=== PATIENT | female | born 1955 | race Caucasian/White ===

== ENCOUNTER 2020-07-10 15:11 | Emergency (ER) | payer SELFPAY | END 2020-07-10 15:57 | disposition left against medical advice (07) | LOC: ER 15:11 | DX: R10.9 Unspecified abdominal pain (principal); Z53.21 Procedure and treatment not carried out due to patient leaving prior to being seen by health care provider ==

== ENCOUNTER → 2020-11-16 | Outpatient (CLI) | payer MEDICARE ==
[2020-07-28 15:00] VITALS: BP 126/81
[~2020-11-16] MED LIST: ALBU2.5V8 INH; ASPI-886 PO; ATOR40TA59 PO; BACL10TA PO; BRIO IH; BUDE10.22 IH; CLOP75TA PO; FLUT16SP NS; LIPITOR80 MG PO; NORT25CA PO; POLY17PO52 PO; PSYL3.4P PO; SERT50TA PO; epi pen
--- NOTE | 2020-11-16 12:50 | PDOC1 ---
INITIAL PAIN CONSULT DATE OF SERVICE: DOS: DATE: 11/16/20 TIME: 12:41 CHIEF COMPLAINT: Chief Complaint: Headaches and neck pain HISTORY OF PRESENT ILLNESS: 65-year-old female presents history of pain in the neck and headaches for proximately 2years getting worse with time with some migraine qualities as well as tension qualities and significant distributional quality of occipital neuralgia bilaterally somewhat worse on the left than the right but present bilaterally in the back of the skull occipital region traveling superiorly into the parietal region and some even into the frontal region when the pain is worse. Patient reports is worse with activity, increased light exposure, reading, rotation of motion cervical spine right repetitive motions with the neck and upper extremities. Patient reports pain is constant sharp stabbing and throbbing and shooting into the back of the head into the superior aspect of the head and the neck as well as some into the shoulders bilaterally superiorly patient reports intermittent intensity change during the day again worse with activity some tingling in the neck and the back of the head as well is burning and cramping aching pain in the neck and the back of the occipital region. Patient did have MRI of the head and cervical spine showing no acute abn ormalities brain signal within normal limits, cervical spine showing generalized disc bulge at C4-5 C5-6 and C6-7 with severe left and moderate right neuroforaminal stenosis at the bilateral C7 nerve roots. Patient has been taking hydrocodone which does decrease the pain but only takes it very sparingly has not had any for 2 weeks. Patient has had chiropractic treatment as well as physical therapy exercise she is currently doing all of which have helped only to a moderate extent. Patient rates her disability rating 0-10 10 endorses a 6 with family responsibilities recreation social activity occupation sexual behavior and self-care and 3 of life support activities. Patient reports awakens her least once a night from sleep does not affect her bowel bladder control does affect her ability to be upright and walking standing or sitting as well. PAST MEDICAL HISTORY: PMH: Arthritis, dizziness, cholecystitis, hearing loss in the left ear, stroke, occluded left vertebral artery, 70 pound weight loss since November purposely. PREVIOUS SURGERIES: Past Surgical Hx: Cholecystectomy, pacemaker placement, total abdominal hysterectomy, lumpectomy left breast, bilateral carpal tunnel release, septoplasty rhinoplasty CURRENT MEDICATIONS: Current Meds: Active Scripts Medications Dose Route/Sig Max Daily Dose Days Date Category [epi pen] PRN 11/16/20 Reported [brio inhaler] 100 Mg IH DAILY 11/16/20 Reported Lipitor (Atorvastatin Calcium) 80 Mg Tablet 1 Tab PO DAILY 11/16/20 Reported Clopidogrel (Clopidogrel Bisulfate) 75 Mg Tablet 1 Tab PO DAILY 07/26/20 Reported Aspirin Ec (Aspirin) 81 Mg Tablet.dr 1 Tab PO DAILY 07/26/20 Reported ALLERGIES; Allergies: Coded Allergies: Influenza Virus Vaccines (Verified Allergy, Intermediate, 07/26/20) codeine (Verified Allergy, Intermediate, 07/26/20) hydrocodone (Verified Allergy, Intermediate, 07/26/20) hydromorphone (Verified Allergy, Intermediate, 07/26/20) latex (Verified Allergy, Intermediate, 07/26/20) nitrofurantoin (Verified Allergy, Intermediate, 07/26/20) sulfadiazine (Verified Allergy, Intermediate, 07/26/20) FAMILY HISTORY: Family Hx: Diabetes, hypertension nervous system disease SOCIAL HISTORY: Social Hx: Patient is under alcohol does not smoke says any illegal illicit or recreational drugs is and lives locally in [facility] and is currently retired. REVIEW OF SYSTEMS: ROS: Positive for those items mentioned in history of present illness, all systems are reviewed, otherwise negative ,and are complete full and well-documented on patient's chart. PHYSICAL EXAM: VS: Blood pressure is 136/81 pulse 96 respirations 18 temperature 97.9 F height is 5 feet 5 inches weight is 189 PE: PHYSICAL EXAMINATION: GENERAL: The patient is awake, alert, oriented, appropriate, very pleasant in demeanor, patient accompanied by her daughter. HEENT: Shows normocephalic, atraumatic. Extraocular movements are intact and symmetrical. Pupils are equal round reactive light and accommodation. Scalp shows normal with appearance and palpation no specific trigger points in the scalp musculature is identified. Moderate tenderness with palpation over the inferior nuchal ridge as well as the inferior aspect of the skull base and superior cervical distribution, without radiation. Oral cavity: Mucous membranes moist and pink. NECK: Shows anterior throat supple without palpable lymphadenopathy noted. Swallow reflex symmetrical. CHEST: Shows normal on inspection. Breath sounds are clear bilaterally, distant but no rales rhonchi wheezes auscultated. HEART: Shows S1, S2 clear. No murmurs auscultated. ABDOMEN: Soft, nontender, nondistended, obese. No palpable organomegaly is noted. BACK: Shows spine grossly in the midline. Normal-appearing cervical lordotic curvature. There is slightly increased thoracic kyphosis, some minor flattening of the lumbar lordotic curvature. Lumbar paraspinous muscles show symmetrical on inspection, on palpation shows some moderate tenderness diffusely throughout the upper, middle and lower distribution of the paraspinous muscles bilaterally and also into the lower thoracic paraspinous musculature, firm and tender, but without specific trigger points, without radiation of pain. The patient has good rotational motion of the lumbar spine, both laterally as well as extension and flexion without significant difficulty. No tenderness over the spinous processes, sacrum or sacroiliac regions. EXTREMITIES: Upper extremities show deep tendon reflexes 2+ in the biceps and triceps tendons. Motor exam is 5 on a scale of 5 with right hip, biceps and triceps flexion and 5/5 on the left. Peripheral pulses are 2+ radial. No peripheral edema is noted bilaterally. Upper extremities are warm and dry to touch, equal in color and appearance. SKIN: Shows warm and dry, good turgor. No edema. No sores, rashes or bruising throughout. IMPRESSION: Impression: 65-year-old female with long history of headaches in the occipital region c onsistent with findings of occipital neuralgia bilaterally. Recent neurosurgical work-up as noted MRI scan brain and cervical spine as noted Arthritis Dizziness History of stroke and vertebral artery occlusion of the left Plan: Options were discussed with the patient patient daughter who accompanied her visit today. We discussed continued medical management continued physical therapies interventional techniques. Patient would like to pursue interventional techniques. We discussed bilateral greater occipital nerve blocks, using description as well as anatomical models to describe the procedure. Patient is interested would like to proceed. In the meantime patient continue with oral analgesics as currently as well as exercise and headache reduction therapies as currently. BRAD JOHANSEN MD Nov 16, 2020 12:50
== END | disposition home or self-care (01) ==
LOC: PNCL 08:21
PROVIDERS: ATTEND Anesthesiology
DX: M54.2 Cervicalgia (principal); R51.9 Headache, unspecified; M19.90 Unspecified osteoarthritis, unspecified site; I10 Essential (primary) hypertension; E78.00 Pure hypercholesterolemia, unspecified; I48.91 Unspecified atrial fibrillation; G47.30 Sleep apnea, unspecified; Z86.73 Personal history of transient ischemic attack (TIA), and cerebral infarction without residual deficits; Z90.49 Acquired absence of other specified parts of digestive tract; Z90.710 Acquired absence of both cervix and uterus; Z98.890 Other specified postprocedural states; Z79.899 Other long term (current) drug therapy; Z82.49 Family history of ischemic heart disease and other diseases of the circulatory system; Z83.3 Family history of diabetes mellitus; Z85.828 Personal history of other malignant neoplasm of skin
CPT/HCPCS: 99214; G0463

== ENCOUNTER → 2020-11-28 | Outpatient (CLI) | payer MEDICARE ==
[2020-07-28 15:00] VITALS: BP 126/81
--- NOTE | 2020-11-28 11:35 | RAD ---
EXAM: Bilateral digital screening mammogram with tomosynthesis. HISTORY: 65-year-old female presents for screening mammography. TECHNIQUE: Full-field digital craniocaudal and mediolateral oblique 2D and 3D tomosynthesis images of both breasts are obtained for evaluation. Computer aided detection was applied. COMPARISON: 08/29/2018 BREAST PARENCHYMAL DENSITY: Level C - Heterogeneously dense. FINDINGS: There is no new suspicious mass, microcalcification or region of architectural distortion. There is a pacemaker generator within the left chest wall with surrounding surgical clips. IMPRESSION: BI-RADS Category 2: Benign finding(s). RECOMMENDATION: Annual mammography is recommended. If your mammogram demonstrates that you have dense breast tissue, which could hide abnormalities, and if you have other risk factors for breast cancer that have been identified, you might benefit from s upplemental screening tests that may be suggested by your ordering physician. Dense breast tissue, i n and of itself, is a relatively common condition. This information is not provided to cause undue c oncern, but rather to raise your awareness and to promote discussion with your physician regarding th e presence of other risk factors, in addition to dense breast tissue. A report of your mammography re sults will be sent to you and your physician. You should contact your physician if you have any ques tions or concerns regarding this report. Mammography is a sensitive method for finding small breast cancers, but it does not detect them all a nd is not a substitute for careful clinical examination. A negative mammogram does not negate a clin ically suspicious finding and should not result in delay in biopsying a clinically suspicious abnorma lity. PQRS compliance statement - Patient information was entered into a reminder system with a target due date for the next mammogram. "Our facility is accredited by the [employer] Mammography Program." Electronically signed by: Ruthie Paredes MD (11/28/2020 11:33 AM) [id number]
== END ==
LOC: MAMMO 09:38
PROVIDERS: ATTEND Plastic Surgery
DX: Z12.31 Encounter for screening mammogram for malignant neoplasm of breast (principal)
CPT/HCPCS: 77063; 77067

== ENCOUNTER → 2020-12-19 | Outpatient (CLI) | payer MEDICARE ==
[2020-07-28 15:00] VITALS: BP 126/81
--- NOTE | 2020-12-23 11:38 | RESP ---
DATE OF SERVICE: 12/19/2020 ATTENDING PHYSICIAN: Romelia Phillips MD The patient underwent full pulmonary function testing on 12/19. The FEV1 to FVC ratio was 78%, FEV1 was normal at 98% of predicted. FVC was likewise normal. Total lung capacity was slightly elevated. Residual volume was elevated. IMPRESSION: 1. No evidence of severe obstructive lung disease. 2. Elevated residual volume compatible with air trapping. CANDELARIA DR: Kina TID: [id number] CC: DONNY ZHONG
== END ==
LOC: PF 07:44
PROVIDERS: ATTEND Internal Medicine Pulmonary Disease
DX: J45.909 Unspecified asthma, uncomplicated (principal)
CPT/HCPCS: 94010; 94726; 94729

== ENCOUNTER 2021-01-10 09:56 | Emergency (ER) | payer MEDICARE ==
[~2021-01-10] VITALS: Ht 165.1 cm; Wt 85.2 kg
--- NOTE | 2021-01-10 10:29 | PHYS DOC ---
Past Medical History Past Medical History: Asthma, CAD, CVA, Other Additional Past Medical Histor: PACEMAKER; 100% BLOCKAGE OF LEFT VERTEBRAL ARTERY Past Surgical History: Cholecystectomy, Hysterectomy Additional Past Surgical Histo: SKIN CA, BILATERAL CARP. TUNNEL, LEFT LYMPH NODES/BREAST Smoking Status: Never Smoker Alcohol Use: None General Adult EDM: Chief Complaint: MULTIPLE COMPLAINTS HPI: HPI: Patient is a 65 year old female who is here with report of left eye pain, redness, tearing and blurred vision. She reports that she recently got new contacts, and only has a contact in the left eye. She slept for 2 nights in a row with a contact in her eye did not take it out. She has taken the contact out as of now. She denies fever or chills. She denies complete vision loss. She reports pain around her orbit. No purulent eye drainage. She denies severe dizziness, nausea vomiting symptoms. She also reports that she feels a "bump" on the top of her head. She reports that she just noticed it yesterday. She denies any trauma or injury. There is no open wound, no redness, no fever. She reports that it is "not normal" for her to have this. However, she also reports that she had the same symptoms years ago, reportedly with her vertebral artery dissection for which she is currently taking Plavix. She denies vertigo or dizzy symptoms. She denies any fall or syncope. Review of Systems: Review of Systems: Constitutional: Denies fever or chills. [] Eyes: Left eye pain, redness, tearing, blurred vision. No vision loss. HENT: He does report nasal congestion. Denies sore throat. Respiratory: Denies cough or shortness of breath. [] Cardiovascular: Denies chest pain or edema. [] GI: Denies abdominal pain, nausea, vomiting Musculoskeletal: Denies back pain or joint pain. [] Integument: Denies rash. [] Neurologic: Endocrine: Denies polyuria or polydipsia. [] Lymphatic: Denies swollen glands. [] Psychiatric: Chronic mood disorder. Heart Score: C/O Chest Pain: No Risk Factors: Risk Factors: DM, Current or recent (<one month) smoker, HTN, HLP, family history of CAD, obesity. Risk Scores: Score 0 - 3: 2.5% MACE over next 6 weeks - Discharge Home Score 4 - 6: 20.3% MACE over next 6 weeks - Admit for Clinical Observation Score 7 - 10: 72.7% MACE over next 6 weeks - Early Invasive Strategies Current Medications: Current Medications Medications (Trade) Dose Ordered Sig/Bryon Start Time Stop Time Status Last Admin Dose Admin Fluorescein Sodium (Ful-Shira) 1 strip 1X ONCE 01/10/21 10:30 01/10/21 10:31 Tetracaine HCl (Tetracaine) 1 drop 1X ONCE 01/10/21 10:30 01/10/21 10:31 Allergies: Allergies: Allergies Coded Allergies Type Severity Reaction Last Updated Verified Influenza Virus Vaccines Allergy Intermediate 07/26/20 Yes codeine Allergy Intermediate 07/26/20 Yes hydrocodone Allergy Intermediate 07/26/20 Yes hydromorphone Allergy Intermediate 07/26/20 Yes latex Allergy Intermediate 07/26/20 Yes nitrofurantoin Allergy Intermediate 07/26/20 Yes sulfadiazine Allergy Intermediate 07/26/20 Yes Physical Exam: PE: Constitutional: Well developed, well nourished, no acute distress, non-toxic aydee earance. [] HENT: Normocephalic, atraumatic, oropharynx is patent and clear. TMs are clear bilaterally. There is no evidence of any scalp abnormality on exam. No palpable step-offs, crepitus. No erythema. No rash. I am unable to elicit any tenderness with palpation of her entire scalp. No deformity. Eyes: PERRL, EOMI, sclera are anicteric. Right eye conjunctive is clear, no chemosis or injection. There is clear tearing of the left eye, there is mild to moderate chemosis, mild to moderate scleral injection and conjunctival erythema. No purulent drainage. No periorbital edema, induration or erythema. No visible foreign body. No corneal ulceration. On Wood lamp exam, after instillation of topical tetracaine and fluorescein, there is one superficial corneal abrasion noted around 1:00. Negative Talya, no evidence of corneal laceration. No large abrasion noted. Photophobia and pain resolved almost immediately after instillation of topical anesthetic. No pain with EOM. Neck: Normal range of motion, no tenderness, supple, trachea is midline. Cardiovascular: She is well-perfused appearing. No edema. Lungs & Thorax: Respirations are nonlabored. Skin: Warm, dry, no erythema, no rash. [] Back: No tenderness, no CVA tenderness. [] Extremities: No tenderness, no cyanosis, no clubbing, ROM intact, no edema. [] Neurologic: Alert and oriented X 3, normal motor function, cranial nerves II through XII grossly intact. She ambulates steadily. Sensation is grossly intact. Speech is clear and fluent. Psychologic: Somewhat bizarre and flat affect. [] EKG: EKG: [] Radiology/Procedures: Radiology/Procedures: [] Course & Med Decision Making: Course & Med Decision Making I discussed the findings, differential diagnosis and plan of care with her. She admits that her tetanus is up-to-date within the last 5 years. She feels much better after local anesthetic is applied. She reports that she has been taking hydrocodone at home for pain, which she had leftover from surgery from last spring. She is almost out of this, though she does report it does help her pain. I agreed to give her a small amount for discharge, but if she should require any more of this, she should reach out to her PCP for this. First dose of topical tobramycin ophthalmic antibiotic is given here. I instructed her on the use of this medication for home. She is to throw away any old contacts. She is not to replace any contacts until symptoms are completely resolved. I cautioned her against sleeping in contacts again, so as to try to avoid issues like this. Regarding her concerns about her scalp, she has no evidence of any obvious deformity or physical exam abnormality. There is no current indication for any emergent imaging or invasive exams at this time, based on current presentation. I did tell her she should follow-up with her primary care physician for further discussion of this matter. She seems to be uninterested in her scalp issue after instillation of tetracaine, and subsequent resolution of her eye discomfort. Return precautions are given. She verbalizes understanding of information given. Vaibhav Disclaimer: Vaibhav Disclaimer: This electronic medical record was generated, in whole or in part, using a voice recognition dictation system. Departure Departure Impression: Primary Impression: Left corneal abrasion Additional Impression: Conjunctivitis, left eye Disposition: HOME / SELF CARE / HOMELESS Condition: STABLE Referrals: DONNY ZHONG (PCP) Patient Instructions: Conjunctivitis (Viral and Bacterial), Eye - Corneal Abrasion Additional Instructions: Use the eyedrops as such: 1 drop in your left eye every 4 hours, while awake, for 5 days. Throw away your old contacts. Do not use any more contacts until your symptoms are resolved, at least 1 week. Return to the ER immediately for fever of 100.4 or higher, severe eyelid swelling, thick yellow or green eye drainage, uncontrolled vomiting, severe headache or any other concerns. You may take the pain medication as needed/as directed. You may use cool compresses as needed. Avoid rubbing your eye. To help soothe your eye, between antibiotic doses, you may use [id number] refresh drops. Keeping these refrigerated may help soothe your eye as well. Contact your primary care physician for follow-up. Scripts Hydrocodone Bit/Acetaminophen (HYDROCODONE-APAP 5-325 ) 1 Tab Tablet 1 TAB PO PRN Q6HRS PRN for PAIN, #8 TAB 0 Refills Prov: JANETTE LEVINE DO 01/10/21 JANETTE LEVINE DO Jan 10, 2021 10:29
[2021-01-10] MEDS ORDERED: TETRACAINE 0.5% OPHTH SOLUTION 4ML BOTTLE. OS ONE (10:30)
[2021-01-10] MEDS ORDERED: FLUORESCEIN OPHTH TEST STRIP. OS ONE (10:30)
[2021-01-10] MEDS ORDERED: TOBRAMYCIN 0.3% OPHTH SOLUTION 5ML BOTTLE. OS ONE (10:45)
[2021-01-10] MEDS ORDERED: HYDR-2761 PO (10:46)
[2021-01-10 11:00] VITALS: BP 122/63
== END 2021-01-10 11:10 | disposition home or self-care (01) ==
LOC: ER 09:56
DX: S05.02XA Injury of conjunctiva and corneal abrasion without foreign body, left eye, initial encounter (principal); H10.9 Unspecified conjunctivitis; Z86.73 Personal history of transient ischemic attack (TIA), and cerebral infarction without residual deficits; J45.909 Unspecified asthma, uncomplicated; I25.10 Atherosclerotic heart disease of native coronary artery without angina pectoris; Z95.0 Presence of cardiac pacemaker; Z88.5 Allergy status to narcotic agent; Z88.2 Allergy status to sulfonamides; Z88.7 Allergy status to serum and vaccine; Z91.040 Latex allergy status; X58.XXXA Exposure to other specified factors, initial encounter; Y93.89 Activity, other specified; Y92.89 Other specified places as the place of occurrence of the external cause; Y99.8 Other external cause status
CPT/HCPCS: 99283

== ENCOUNTER → 2021-03-30 | Outpatient (CLI) | payer MEDICARE ==
[~2021-03-30] MED LIST changes: +ASPI1TAB31 PO; +CETI1TAB7 PO; +HYDR-2761 PO; +MULT-445 PO
--- NOTE | 2021-03-30 14:20 | EKG ---
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
[2021-03-30 14:29] LABS: BASO % 1 % (0-3); EOS % 1 % (0-3); HEMATOCRIT 42.4 % (36.0-47.0); HEMOGLOBIN 14.5 g/dL (12.0-15.5); LYMPH # 1.6 x10^3/uL (1.0-4.8); LYMPH % 35 % (24-48); MEAN CORPUSCULAR HEMOGLOBIN 31 pg (25-35); MEAN CORPUSCULAR HGB CONC 34 g/dL (31-37); MEAN CORPUSCULAR VOLUME 91 fL (79-100); MONO # 0.4 x10^3/uL (0.0-1.1); MONO % 8 % (0-9); NEUT # 2.5 x10^3/uL (1.8-7.7); NEUT % 55 % (31-73); PLATELET COUNT 206 x10^3/uL (140-400); RED BLOOD COUNT 4.65 x10^6/uL (3.50-5.40); RED CELL DISTRIBUTION WIDTH 12.6 % (11.5-14.5); WHITE BLOOD COUNT 4.5 x10^3/uL (4.0-11.0)
[2021-03-30 14:44] LABS: CALCIUM 8.6 mg/dL (8.5-10.1); CREATININE 0.7 mg/dL (0.6-1.0); GFR 84.2; POTASSIUM 3.6 mmol/L (3.5-5.1)
== END ==
LOC: SURGPAT 13:45
PROVIDERS: ATTEND Plastic Surgery
DX: Z01.818 Encounter for other preprocedural examination (principal); U07.1 COVID-19; Z79.01 Long term (current) use of anticoagulants
CPT/HCPCS: 36415; 80048; 85025; 85610; 85730; 93005; U0003; U0005

== ENCOUNTER 2021-05-15 06:34 | Day surgery (SDC) | payer MEDICARE ==
[2021-03-30 14:27] VITALS: BP 129/73
[2021-05-12 13:18] VITALS: BP 129/73
[~2021-05-15] VITALS: Ht 165.1 cm; Wt 82.5 kg
[~2021-05-15 06:34] MED LIST changes: +HYDROmorphone 2 MG/ML INJ. IVP PRN; +IV RINGERS,LACTATED 1000ML 1,000 ML IV SCH; +MORPHINE SULFATE 2 MG/ML INJ. IVP PRN; +PROCHLORPERAZINE 10 MG/2 ML VIAL. IVP PRN; +fentaNYL PF VIAL 100 MCG/2 ML VIAL IVP PRN
[2021-05-15] MEDS ORDERED: NEOSTIGMINE METHYLSULFATE 5 MG/5 ML SYRINGE. ONE (06:59)
[2021-05-15] MEDS ORDERED: fentaNYL PF VIAL 100 MCG/2 ML VIAL ONE (06:59)
[2021-05-15] MEDS ORDERED: ROCURONIUM 50 MG/5 ML VIAL. ONE (06:59)
[2021-05-15] MEDS ORDERED: DEXAMETHASONE SOD PHOS 4 MG/ML VIAL ONE (06:59)
[2021-05-15] MEDS ORDERED: LIDOCAINE 2% PF 5 ML VIAL. ONE (06:59)
[2021-05-15] MEDS ORDERED: ONDANSETRON PF 4 MG/2 ML VIAL. ONE (06:59)
[2021-05-15] MEDS ORDERED: PROPOFOL 10 MG/ML (20ML) VIAL. IV ONE (06:59)
[2021-05-15] MEDS ORDERED: PHENYLEPHRINE 10 MG/ML VIAL. ONE (07:00)
[2021-05-15] MEDS ORDERED: GLYCOPYRROLATE 1 MG/5 ML VIAL. ONE (07:00)
[2021-05-15] MEDS ORDERED: SEVOFLURANE > 120 MINUTES. IH ONE (07:00)
[2021-05-15] MEDS ORDERED: FLUT1AER2 INH (07:07)
[2021-05-15 07:17] VITALS: BP 131/77
[2021-05-15] MEDS ORDERED: BUPIVACAINE-EPI 0.5% 30 ML VIAL KIT. ONE (07:22)
[2021-05-15] MEDS ORDERED: LIDOCAINE 1%/EPI 1:100,000 20 ML VIAL. ONE (07:23)
--- NOTE | 2021-05-15 08:17 | NUR ---
PT HERE IN [facility] FOR [facility]GERY. DR. STILL HERE TO SEE PT. PT STATED SHE FELL YESTERDAY. PT HAD SOME DIZZYNESS AND NEUROLOGICAL CHANGES. DR. STILL CX SUREGERY AND INSTRUCTED TO PT TO GO TO ER TO BE EVAULATED. PT VERBALIZED UNDERSTANDING AND IS BEING DC'D FROM [facility]. ALL HER BELONGINGS WERE RETURNED. DAUGTHER IS AT HER BESIDE AND IS GOING TO ER WITH HER. PT WHEELED TO ER.
--- NOTE | 2021-05-15 08:50 | PDOC ---
Provider Note Date of Service: DATE: 05/15/21 TIME: 08:39 Provider Note S: I arrived in the preoperative holding area to sharon the patient. The nursing team informed me that the patient reported a fall this past Saturday with residual symptoms. She stopped her Plavix 3 days ago, 2 days before the fall. On questioning the patient reports that she was in her home on Saturday when she lost her footing, sliding on her left foot and having her right leg folded under her. She did hit the back of her head on the stairs. She reports having a headache but not her usual migraine with aura that has since resolved. However she reports some dizziness that is different from her usual dizziness associated with her stroke. She also reports some epigastric pain new in nature after the fall and describes it as feeling like a "ulcer." O: Afebrile. Vital signs stable. General: No acute distress HEENT: Pupils equal and reactive. Chest: Bilateral breasts without signs of bruising, hematoma, or infection Abdomen: Soft, nondistended, no signs of bruising or subcutaneous hematoma. Patient does have tenderness to palpation at the epigastrium and less so in the left upper quadrant. Neuro: A&O x3. Some postural dizziness. Gait intact, steady. A/P: 66-year-old female with macromastia status post recent fall with new onset neurologic symptoms, unevaluated. -We will cancel surgery today and consider rescheduling in the future -Patient was advised to hold Plavix until she is evaluated formally -Patient was referred to the emergency room for further evaluation Fe Still MD Justifications for Admission Other Justification FE STILL MD May 15, 2021 08:50
== END 2021-05-15 16:10 | disposition home or self-care (01) ==
LOC: SURG 06:34
PROVIDERS: ATTEND Plastic Surgery
DX: R92.8 Other abnormal and inconclusive findings on diagnostic imaging of breast (principal); Z53.8 Procedure and treatment not carried out for other reasons; I10 Essential (primary) hypertension; I48.91 Unspecified atrial fibrillation; E78.00 Pure hypercholesterolemia, unspecified; J45.909 Unspecified asthma, uncomplicated; G47.30 Sleep apnea, unspecified; Z90.710 Acquired absence of both cervix and uterus; Z85.828 Personal history of other malignant neoplasm of skin; Z79.899 Other long term (current) drug therapy; Z98.890 Other specified postprocedural states; Z79.82 Long term (current) use of aspirin; Z91.040 Latex allergy status; Z88.8 Allergy status to other drugs, medicaments and biological substances
CPT/HCPCS: J0690; J2370; J2710; J3010; J3490; J1100; J2405; J2704

== ENCOUNTER 2021-05-15 08:36 | Observation (INO) | payer MEDICARE ==
[~2021-05-15] VITALS: Ht 165.1 cm; Wt 85.6 kg
[~2021-05-15 08:36] MED LIST changes: +FLUT1AER2 INH; -HYDROmorphone 2 MG/ML INJ. IVP PRN; -IV RINGERS,LACTATED 1000ML 1,000 ML IV SCH; -MORPHINE SULFATE 2 MG/ML INJ. IVP PRN; -PROCHLORPERAZINE 10 MG/2 ML VIAL. IVP PRN; -fentaNYL PF VIAL 100 MCG/2 ML VIAL IVP PRN
[2021-05-15 09:13] LABS: CALCIUM 8.9 mg/dL (8.5-10.1); CREATININE 0.8 mg/dL (0.6-1.0); POTASSIUM 3.8 mmol/L (3.5-5.1)
[2021-05-15 09:17] LABS: BASO % 1 % (0-3); EOS % 1 % (0-3); HEMATOCRIT 41.6 % (36.0-47.0); HEMOGLOBIN 13.7 g/dL (12.0-15.5); LYMPH # 1.3 x10^3/uL (1.0-4.8); LYMPH % 39 % (24-48); MEAN CORPUSCULAR HEMOGLOBIN 30 pg (25-35); MEAN CORPUSCULAR HGB CONC 33 g/dL (31-37); MEAN CORPUSCULAR VOLUME 92 fL (79-100); MONO # 0.3 x10^3/uL (0.0-1.1); MONO % 8 % (0-9); NEUT # 1.8 x10^3/uL (1.8-7.7); NEUT % 52 % (31-73); PLATELET COUNT 184 x10^3/uL (140-400); RED BLOOD COUNT 4.54 x10^6/uL (3.50-5.40); RED CELL DISTRIBUTION WIDTH 12.5 % (11.5-14.5); WHITE BLOOD COUNT 3.4 x10^3/uL (4.0-11.0)
--- NOTE | 2021-05-15 09:21 | RAD ---
CT HEAD/BRAIN WO History: Reason: slurred speech / Spl. Instructions: / History: Comparison: None. Technique: Noncontrast CT imaging was performed of the head. Exposure: One or more of the following individualized dose reduction techniques were utilized for thi s examination: 1. Automated exposure control 2. Adjustment of the mA and/or kV according to patient size 3. Use of iterative reconstruction technique. Findings: No intracranial hemorrhage. No mass effect. No hydrocephalus. Mild foci of decreased attenuation within hemispheric white matter, most often due to chronic microva scular ischemia. Partially empty sella, often incidental. Imaged orbits are unremarkable. Imaged paranasal sinuses and mastoid air cells are clear. No acute ca lvarial fracture. TMJ arthropathy. Impression: 1. No acute intracranial abnormality. Electronically signed by: Adan Cardona DO (05/15/2021 9:19 AM) [id number]
[2021-05-15 09:26] LABS: ALBUMIN 3.9 g/dL (3.4-5.0); ALBUMIN/GLOBULIN RATIO 1.3 (1.0-1.7); MAGNESIUM 2.1 mg/dL (1.8-2.4); TOTAL BILIRUBIN 0.4 mg/dL (0.2-1.0)
[2021-05-15 09:36] LABS: PROTHROMBIN TIME PATIENT 12.8 SEC (11.7-14.0)
[2021-05-15 09:37] LABS: BILIRUBIN,URINE NEGATIVE (NEG); CLARITY,URINE CLEAR; COLOR,URINE YELLOW; NITRITE,URINE NEGATIVE (NEG); PH,URINE 7.5 (<5.0-8.0); PROTEIN,URINE NEGATIVE (NEG-TRACE); UROBILINOGEN,URINE 0.2 mg/dL (0.2 mg/dL)
--- NOTE | 2021-05-15 09:37 | RAD ---
AP chest. HISTORY: Slurred speech AP view was taken of the chest. Lungs are clear. There are clips in the left axilla from prior surger y. There is a left pacemaker with atrial and ventricular pacing leads. There is no effusion. IMPRESSION: 1. No acute infiltrates. Electronically signed by: Celio Alfredo MD (05/15/2021 9:35 AM) [facility]
[2021-05-15 09:40] LABS: INFLUENZA A PATIENT NEGATIVE (NEGATIVE); INFLUENZA B PATIENT NEGATIVE (NEGATIVE)
[2021-05-15 09:40] LABS: AMORPHOUS SEDIMENT,UR PRESENT /HPF; BACTERIA,URINE 0 /HPF (0-FEW); RBC,URINE 0 /HPF (0-2)
[2021-05-15 09:45] LABS: AMPHETAMINE/METHAMPHETAMINE NEG (NEG); BARBITURATES NEG (NEG); BENZODIAZEPINES NEG (NEG); CANNABINOIDS NEG (NEG); COCAINE NEG (NEG); METHADONE NEG (NEG); OPIATES NEG (NEG); PHENCYCLIDINE NEG (NEG)
[2021-05-15] MEDS ORDERED: IOHEXOL 300 MG/ML 100ML VIAL. IV ONE (10:45)
[2021-05-15] MEDS ORDERED: CONTRAST GIVEN. MC PRN (10:45)
--- NOTE | 2021-05-15 10:46 | PDOC1 ---
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 Staff noted and patient noted she woke up this way. She notes this is not unusual for her. Has been off aspirin Plavix for 5 days leading up to surgery. No intracranial hemorrhage on noncontrast CT head and left-sided pacemaker chest radiograph no acute findings. Symptoms apparently resolved. Intentionally lost 66 pounds since 11/2019. She does note on further review that she had a fall on the stairs 2 days prior to coming to the hospital did not strike her head or lose consciousness may be hit her left side. She does note some crampy left flank pain rating down her pelvis over the last couple days as well. She also complains of headache though she does get right posterior headaches frequently. She is worried she may have gotten a little confused to that no loss of consciousness no concussion. WBC 3.4, Hb 13.7 platelets 184, NA 141, K3.8, BUN 14, CR 0.8, glucose 94, calciu m 8.9, magnesium 2.1, bilirubin 0.4, AST 21, ALT 33, alkaline phosphatase 80, albumin 3.9, high-sensitivity troponin is 5, urinalysis bland, urine drug screen negative, rapid influenza and rapid COVID-19 negative She notes a recent follow-up with Dr. Castillo office and pacemaker check only requiring 9% pacing. Live with supportive daughter Oliva who was present in ED for interview and provides history. She is going to be leaving for [place], however. No significant alcohol history. On statin for HLD. Admitted for further care Past Medical History Cardiovascular: Hyperlipidemia, Other CENTRAL NERVOUS SYSTEM: CVA GI: Constipation Past Surgical History Past Surgical History: Pacemaker, Cholecystectomy, Hysterectomy Family History Family History: Other Social History Smoke: No ALCOHOL: none Drugs: None Current Medications Current Medications Active Scripts Active Hydrocodone-Apap 5-325 (Hydrocodone Bit/Acetaminophen) 1 Tab Tablet 1 Tab PO PRN Q6HRS PRN Reported Breo Ellipta 100-25 Mcg INH (Fluticasone/Vilanterol) 1 Each Blst.w.dev 1 Each INH DAILY Zyrtec-D Tablet (Cetirizine Hcl/Pseudoephedrine) 1 Each Tab.er.12h 1 Tab PO DAILY Excedrin Migraine Caplet (Aspirin/Acetaminophen/Caffeine) 1 Each Tablet 1 Each PO Q6HRS PRN Multivitamins (Multivitamin) 1 Each Tablet 1 Tab PO DAILY [epi pen] PRN Lipitor (Atorvastatin Calcium) 80 Mg Tablet 1 Tab PO DAILY Clopidogrel (Clopidogrel Bisulfate) 75 Mg Tablet 1 Tab PO DAILY Aspirin Ec (Aspirin) 81 Mg Tablet. 1 Tab PO DAILY Allergies Allergies: Coded Allergies: Influenza Virus Vaccines (Verified Allergy, Intermediate, Anaphylaxis, 05/15/21) codeine (Verified Allergy, Intermediate, Rash, 05/15/21) abdominal pain hydromorphone (Verified Allergy, Intermediate, Rash, 05/15/21) latex (Verified Allergy, Intermediate, Hives, 05/15/21) nitrofurantoin (Verified Allergy, Intermediate, Anxiety, 05/15/21) hallucination,hives sulfadiazine (Verified Allergy, Intermediate, Hives, 05/15/21) ROS General: YES: Fatigue, Malaise; No: Chills, Night Sweats, Appetite, Other PSYCHOLOGICAL ROS: YES: Disorientation; No: Anxiety, Behavioral Disorder, Concentration difficultie, Decreased libido, Depression, Hallucinations, Hostility, Irritablity, Memory difficulties, Mood Swings, Obsessive thoughts, Physical abuse, Sexual abuse, Sleep disturbances, Suicidal ideation, Other Eyes: No Blurry vision, No Decreased vision, No Double vision, No Dry eyes, No Excessive tearing, No Eye Pain, No Itchy Eyes, No Loss of vision, No Photophobia, No Scotomata, No Uses contacts, No Uses glasses, No Other HEENT: No: Heacaches, Visual Changes, Hearing change, Nasal congestion, Nasal discharge, Oral lesions, Sinus pain, Sore Throat, Epistaxis, Sneezing, Snoring, Tinnitus, Vertigo, Vocal changes, Other ALLERGY AND IMMUNOLOGY: No: Hives, Insect Bite Sensitivity, Itchy/Watery Eyes, Nasal Congestion, Post Nasal Drip, Seasonal Allergies, Other Hematological and Lymphatic: No: Bleeding Problems, Blood Clots, Blood Transfusions, Brusing, Night Sweats, Pallor, Swollen Lymph Nodes, Other ENDOCRINE: No: Breast Changes, Galactorrhea, Hair Pattern Changes, Hot Flashes, Malaise/lethargy, Mood Swings, Palpitations, Polydipsia/polyuria, Skin Changes, Temperature Intolerance, Unexpected Weight Changes, Other Breast: No New/Changing Breast Lumps, No Nipple changes, No Nipple discharge, No Other Respiratory: No: Cough, Hemoptysis, Orthopnea, Pleuritic Pain, Shortness of breath, SOB with excertion, Sputum Changes, Stridor, Tachypnea, Wheezing, Other Cardiovascular: No Chest Pain, No Palpitations, No Orthopnea, No Paroxysmal Noc. Dyspnea, No Edema, No Lt Headedness, No Other Gastrointestinal: Yes Abdominal Pain; No Nausea, No Vomiting, No Diarrhea, No Constipation, No Melena, No Hematochezia, No Other Genitourinary: No Dysuria, No Frequency, No Incontinence, No Hematuria, No Retention, No Discharge, No Urgency, No Pain, No Flank Pain, No Other, No , No , No , No , No , No , No Musculoskeletal: No Gait Disturbance, No Joint Pain, No Joint Stiffness, No Joint Swelling, No Muscle Pain, No Muscular Weakness, No Pain In:, No Swelling In:, No Other Neurological: No Behavorial Changes, No Bowel/Bladder ControlChng, No Confusion, No Dizziness, No Gait Disturbance, No Headaches, No Impaired Coord/balance, No Memory Loss, No Numbness/Tingling, No Seizures, No Speech Problems, No Tremors, No Visual Changes, No Weakness, No Other Skin: No Dry Skin, No Eczema, No Hair Changes, No Lumps, No Mole Changes, No Mottling, No Nail Changes, No Pruritus, No Rash, No Skin Lesion Changes, No Other, No Acne Physical Exam General: Alert, Oriented X3, Cooperative, No acute distress HEENT: PERRLA Lungs: Clear to auscultation, Normal air movement Heart: S1S2, RRR, no thrills, no rubs, no gallops, no murmurs Abdomen: Normal bowel sounds, Soft, No tenderness, No hepatosplenomegaly, No masses Rectal Exam: not examined Extremities: No clubbing, No cyanosis, No edema, Normal pulses, No tenderness/swelling Skin: No rashes, No breakdown, No significant lesion Neuro: Normal gait, Normal speech, Strength at 5/5 X4 ext, Normal tone, Sensation intact, Cranial nerves 3-12 NL, Reflexes 2+ Psych/Mental Status: Mental status NL, Mood NL Vitals Vitals Vital Signs Date Time Temp Pulse Resp B/P (MAP) Pulse Ox O2 Delivery O2 Flow Rate FiO2 05/15/21 08:37 98.2 101 24 186/80 (115) 100 Room Air 98.2 Labs Labs Laboratory Tests Test 05/15/21 08:43 05/15/21 08:50 05/15/21 09:15 05/15/21 09:19 Glucose (Fingerstick) 91 mg/dL (70-99) White Blood Count 3.4 x10^3/uL (4.0-11.0) Red Blood Count 4.54 x10^6/uL (3.50-5.40) Hemoglobin 13.7 g/dL (12.0-15.5) Hematocrit 41.6 % (36.0-47.0) Mean Corpuscular Volume 92 fL (79-100) Mean Corpuscular Hemoglobin 30 pg (25-35) Mean Corpuscular Hemoglobin Concent 33 g/dL (31-37) Red Cell Distribution Width 12.5 % (11.5-14.5) Platelet Count 184 x10^3/uL (140-400) Neutrophils (%) (Auto) 52 % (31-73) Lymphocytes (%) (Auto) 39 % (24-48) Monocytes (%) (Auto) 8 % (0-9) Eosinophils (%) (Auto) 1 % (0-3) Basophils (%) (Auto) 1 % (0-3) Neutrophils # (Auto) 1.8 x10^3/uL (1.8-7.7) Lymphocytes # (Auto) 1.3 x10^3/uL (1.0-4.8) Monocytes # (Auto) 0.3 x10^3/uL (0.0-1.1) Eosinophils # (Auto) 0.0 x10^3/uL (0.0-0.7) Basophils # (Auto) 0.0 x10^3/uL (0.0-0.2) Prothrombin Time 12.8 SEC (11.7-14.0) Prothromb Time International Ratio 1.0 (0.8-1.1) Activated Partial Thromboplast Time 31 SEC (24-38) Sodium Level 141 mmol/L (136-145) Potassium Level 3.8 mmol/L (3.5-5.1) Chloride Level 105 mmol/L (98-107) Carbon Dioxide Level 30 mmol/L (21-32) Anion Gap 6 (6-14) Blood Urea Nitrogen 14 mg/dL (7-20) Creatinine 0.8 mg/dL (0.6-1.0) Estimated GFR (Cockcroft-Gault) 72.0 BUN/Creatinine Ratio 18 (6-20) Glucose Level 94 mg/dL (70-99) Lactic Acid Level 0.8 mmol/L (0.4-2.0) Calcium Level 8.9 mg/dL (8.5-10.1) Magnesium Level 2.1 mg/dL (1.8-2.4) Total Bilirubin 0.4 mg/dL (0.2-1.0) Aspartate Amino Transf (AST/SGOT) 21 U/L (15-37) Alanine Aminotransferase (ALT/SGPT) 33 U/L (14-59) Alkaline Phosphatase 80 U/L (46-116) Troponin I High Sensitivity 5 ng/L (4-50) Total Protein 7.0 g/dL (6.4-8.2) Albumin 3.9 g/dL (3.4-5.0) Albumin/Globulin Ratio 1.3 (1.0-1.7) Lipase 60 U/L (73-393) Ethyl Alcohol Level < 10 mg/dL (0-10) Influenza Type A Antigen Negative (NEGATIVE) Influenza Type B Antigen Negative (NEGATIVE) SARS-CoV-2 Antigen (Rapid) Negative (NEGATIVE) Urine Collection Type Unknown Urine Color Yellow Urine Clarity Clear Urine pH 7.5 (<5.0-8.0) Urine Specific [place] 1.020 (1.000-1.030) Urine Protein Negative mg/dL (NEG-TRACE) Urine Glucose (UA) Negative mg/dL (NEG) Urine Ketones (Stick) Negative mg/dL (NEG) Urine Blood Negative (NEG) Urine Nitrite Negative (NEG) Urine Bilirubin Negative (NEG) Urine Urobilinogen Dipstick 0.2 mg/dL (0.2 mg/dL) Urine Leukocyte Esterase Trace (NEG) Urine RBC 0 /HPF (0-2) Urine WBC 1-4 /HPF (0-4) Urine Squamous Epithelial Cells Occ /LPF Urine Amorphous Sediment Present /HPF Urine Bacteria 0 /HPF (0-FEW) Urine Opiates Screen Neg (NEG) Urine Methadone Screen Neg (NEG) Urine Barbiturates Neg (NEG) Urine Phencyclidine Screen Neg (NEG) Urine Amphetamine/Methamphetamine Neg (NEG) Urine Benzodiazepines Screen Neg (NEG) Urine Cocaine Screen Neg (NEG) Urine Cannabinoids Screen Neg (NEG) Urine Ethyl Alcohol Neg (NEG) Laboratory Tests Test 05/15/21 08:43 05/15/21 08:50 05/15/21 09:15 05/15/21 09:19 Glucose (Fingerstick) 91 mg/dL (70-99) White Blood Count 3.4 x10^3/uL (4.0-11.0) Red Blood Count 4.54 x10^6/uL (3.50-5.40) Hemoglobin 13.7 g/dL (12.0-15.5) Hematocrit 41.6 % (36.0-47.0) Mean Corpuscular Volume 92 fL (79-100) Mean Corpuscular Hemoglobin 30 pg (25-35) Mean Corpuscular Hemoglobin Concent 33 g/dL (31-37) Red Cell Distribution Width 12.5 % (11.5-14.5) Platelet Count 184 x10^3/uL (140-400) Neutrophils (%) (Auto) 52 % (31-73) Lymphocytes (%) (Auto) 39 % (24-48) Monocytes (%) (Auto) 8 % (0-9) Eosinophils (%) (Auto) 1 % (0-3) Basophils (%) (Auto) 1 % (0-3) Neutrophils # (Auto) 1.8 x10^3/uL (1.8-7.7) Lymphocytes # (Auto) 1.3 x10^3/uL (1.0-4.8) Monocytes # (Auto) 0.3 x10^3/uL (0.0-1.1) Eosinophils # (Auto) 0.0 x10^3/uL (0.0-0.7) Basophils # (Auto) 0.0 x10^3/uL (0.0-0.2) Prothrombin Time 12.8 SEC (11.7-14.0) Prothromb Time International Ratio 1.0 (0.8-1.1) Activated Partial Thromboplast Time 31 SEC (24-38) Sodium Level 141 mmol/L (136-145) Potassium Level 3.8 mmol/L (3.5-5.1) Chloride Level 105 mmol/L (98-107) Carbon Dioxide Level 30 mmol/L (21-32) Anion Gap 6 (6-14) Blood Urea Nitrogen 14 mg/dL (7-20) Creatinine 0.8 mg/dL (0.6-1.0) Estimated GFR (Cockcroft-Gault) 72.0 BUN/Creatinine Ratio 18 (6-20) Glucose Level 94 mg/dL (70-99) Lactic Acid Level 0.8 mmol/L (0.4-2.0) Calcium Level 8.9 mg/dL (8.5-10.1) Magnesium Level 2.1 mg/dL (1.8-2.4) Total Bilirubin 0.4 mg/dL (0.2-1.0) Aspartate Amino Transf (AST/SGOT) 21 U/L (15-37) Alanine Aminotransferase (ALT/SGPT) 33 U/L (14-59) Alkaline Phosphatase 80 U/L (46-116) Troponin I High Sensitivity 5 ng/L (4-50) Total Protein 7.0 g/dL (6.4-8.2) Albumin 3.9 g/dL (3.4-5.0) Albumin/Globulin Ratio 1.3 (1.0-1.7) Lipase 60 U/L (73-393) Ethyl Alcohol Level < 10 mg/dL (0-10) Influenza Type A Antigen Negative (NEGATIVE) Influenza Type B Antigen Negative (NEGATIVE) SARS-CoV-2 Antigen (Rapid) Negative (NEGATIVE) Urine Collection Type Unknown Urine Color Yellow Urine Clarity Clear Urine pH 7.5 (<5.0-8.0) Urine Specific [place] 1.020 (1.000-1.030) Urine Protein Negative mg/dL (NEG-TRACE) Urine Glucose (UA) Negative mg/dL (NEG) Urine Ketones (Stick) Negative mg/dL (NEG) Urine Blood Negative (NEG) Urine Nitrite Negative (NEG) Urine Bilirubin Negative (NEG) Urine Urobilinogen Dipstick 0.2 mg/dL (0.2 mg/dL) Urine Leukocyte Esterase Trace (NEG) Urine RBC 0 /HPF (0-2) Urine WBC 1-4 /HPF (0-4) Urine Squamous Epithelial Cells Occ /LPF Urine Amorphous Sediment Present /HPF Urine Bacteria 0 /HPF (0-FEW) Urine Opiates Screen Neg (NEG) Urine Methadone Screen Neg (NEG) Urine Barbiturates Neg (NEG) Urine Phencyclidine Screen Neg (NEG) Urine Amphetamine/Methamphetamine Neg (NEG) Urine Benzodiazepines Screen Neg (NEG) Urine Cocaine Screen Neg (NEG) Urine Cannabinoids Screen Neg (NEG) Urine Ethyl Alcohol Neg (NEG) Images Images CT head non-contrast: No intracranial hemorrhage. No mass effect. No hydrocephalus. Mild foci of decreased attenuation within hemispheric white matter, most often due to chronic microvascular ischemia. Partially empty sella, often incidental. Imaged orbits are unremarkable. Imaged paranasal sinuses and mastoid air cells are clear. No acute calvarial fracture. TMJ arthropathy. Impression: 1. No acute intracranial abnormality. CT chest/abdomen/pelvis: Left chest dual-chamber cardiac pacemaker. The thyroid is unremarkable. Right lower cervical lymph node measures 9 mm short axis with partial calcification (axial 7). The aorta is normal in caliber. No aneurysm or dissection. Pulmonary arteries are unremarkable. No mediastinal hemorrhage or hematoma. No enlarged mediastinal or hilar adenopathy. The airways are clear. No pleural effusion or pneumothorax. Mild bilateral dependent lung changes. Right lower lobe 5 mm pulmonary nodule (axial 27). Left axillary surgical clips. Mild degenerative changes in the thoracic spine. No acute osseous abnormality. No free intraperitoneal air or fluid. The liver is unremarkable. The gallbladder is surgically absent. Pancreas, spleen and adrenal glands are unremarkable. No renal hydronephrosis. Inferior pole left kidney punctate 3 mm nonobstructing stone. No bladder is within normal limits. Status post hysterectomy. No pelvic masses. The stomach and small bowel are unremarkable. Atherosclerotic calcifications of the aorta. The soft tissues are unremarkable. No acute osseous abnormality. Impression: 1. No acute findings in the chest, abdomen and pelvis. 2. Right lower lobe 5 mm pulmonary nodule. Recommend follow-up according to 2017 Fleischner Society Guidelines for solid pulmonary nodules: <6 mm: In a low risk patient, no routine follow-up. In a high risk patient (history of smoking or other known risk factors), optional CT at 12 months. Certain paitents with suspicious nodule morphology, upper lobe location, or both may warrant 12-month follow-up. 3. Nonobstructing left nephrolithiasis. VTE Prophylaxis Ordered VTE Prophylaxis Devices: No VTE Pharmacological Prophylaxi: Yes Assessment/Plan Assessment/Plan A/P: Slurred speech - facial droop. Likely chronic intermittent TIA. would cont ASA, plavix. Neurology consulted. Passed mcmillan bedside, can swallow. Symptoms resolved, NIHSS 0 now H/o prior CVA w/ expressive aphasia - has since resolved. H/o left vertebral artery dissection HTN (off meds since has lost weight) HLD - lipitor Asthma - prn nebs CHONG - on CPAP S/p pacemaker - sees Dr. Castillo, recent interrogation a few weeks ago BCC removal under left breast w/ axillary LN dissection (benign x 3) - stable Bilateral shoulder pain - with pendulous breasts, pain, she wishes to delay and reschedule her reductive mammoplasty in the future Left flank and abd pain, nausea - likely related to nephrolithiasis, passed stone GERD, dysphagia (w/ past esophageal dilation), h/o PUD - given PPI as inpt recently, neg H. pylori breath test H/o CVA on Plavix and ASA H/o migraines on Excedrin Leukopenia - will monitor, no clear etiology FEN - ADAT PPX - lovenox FULL CODE Dispo - observation for TIA symptoms Justifications for Admission Other Justification JENIFFER ZEPEDA MD May 15, 2021 10:46
--- NOTE | 2021-05-15 11:37 | RAD ---
CT CHEST+ABD+PELVIS W History: Trauma. Pain. Comparison: CT abdomen and pelvis 07/26/2020. Technique: CT of the chest, abdomen and pelvis with intravenous contrast Findings: Left chest dual-chamber cardiac pacemaker. The thyroid is unremarkable. Right lower cervical lymph no de measures 9 mm short axis with partial calcification (axial 7). The aorta is normal in caliber. No aneurysm or dissection. Pulmonary arteries are unremarkable. No mediastinal hemorrhage or hematoma. N o enlarged mediastinal or hilar adenopathy. The airways are clear. No pleural effusion or pneumothora x. Mild bilateral dependent lung changes. Right lower lobe 5 mm pulmonary nodule (axial 27). Left axi llary surgical clips. Mild degenerative changes in the thoracic spine. No acute osseous abnormality. No free intraperitoneal air or fluid. The liver is unremarkable. The gallbladder is surgically absent . Pancreas, spleen and adrenal glands are unremarkable. No renal hydronephrosis. Inferior pole left k idney punctate 3 mm nonobstructing stone. No bladder is within normal limits. Status post hysterectom y. No pelvic masses. The stomach and small bowel are unremarkable. Atherosclerotic calcifications of the aorta. The soft tissues are unremarkable. No acute osseous abnormality. Impression: 1. No acute findings in the chest, abdomen and pelvis. 2. Right lower lobe 5 mm pulmonary nodule. Recommend follow-up according to 2017 Fleischner Society Guidelines for solid pulmonary nodules: <6 mm: In a low risk patient, no routine follow-up. In a high risk patient (history of smoking or other known risk factors), optional CT at 12 months. Certain osmar tents with suspicious nodule morphology, upper lobe location, or both may warrant 12-month follow-up. 3. Nonobstructing left nephrolithiasis. ------ Exposure: One or more of the following individualized dose reduction techniques were utilized for thi s examination: 1. Automated exposure control 2. Adjustment of the mA and/or kV according to patient size 3. Use of iterative reconstruction technique. Electronically signed by: Nhan Manuel MD (05/15/2021 11:34 AM) [id number]
--- NOTE | 2021-05-15 12:10 | PHYS DOC ---
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 TUNNEL, LEFT LYMPH NOD ES/BREAST Smoking Status: Never Smoker Alcohol Use: None Adult General Chief Complaint Chief Complaint: NEURO SYMPTOMS/DEFICITS HPI HPI Patient is a 66 year old female presents with slurred speech. Patient was supposed to have breast reduction surgery done today. During her preoperative assessment the staff noticed that she was slurring her words and she was thus brought to the ED for evaluation. Patient is a history of what sounds like a hemorrhagic stroke 8 years ago, she has had some residual dysarthria intermittently since that time. She denies any focal weakness or numbness. She denies confusion but does state that there is some trouble concentrating at this time. No fever, chest pain, shortness of breath or recent trauma. Review of Systems Review of Systems Constitutional: Denies fever Eyes: Denies change in visual acuity or eye pain HENT: Denies sore throat Respiratory: Denies shortness of breath Cardiovascular: Denies chest pain GI: Denies abd pain : Denies dysuria Musculoskeletal: Denies back or extremity injury Integument: Denies rash or skin lesions Neurologic: Denies headache, focal weakness or sensory changes All other systems were reviewed and found to be within normal limits, except as documented in this note. Current Medications Current Medications Current Medications Medications (Trade) Dose Ordered Sig/Bryon Start Time Stop Time Status Last Admin Dose Admin Info (CONTRAST GIVEN -- Rx MONITORING) 1 each PRN DAILY PRN 05/15/21 10:45 05/17/21 10:44 Iohexol (Omnipaque 300 Mg/ml) 75 ml 1X ONCE 05/15/21 10:45 05/15/21 10:46 DC 05/15/21 10:56 75 ML Allergies Allergies Allergies Coded Allergies Type Severity Reaction Last Updated Verified Influenza Virus Vaccines Allergy Intermediate Anaphylaxis 05/15/21 Yes codeine Allergy Intermediate Rash 05/15/21 Yes hydromorphone Allergy Intermediate Rash 05/15/21 Yes latex Allergy Intermediate Hives 05/15/21 Yes nitrofurantoin Allergy Intermediate Anxiety 05/15/21 Yes sulfadiazine Allergy Intermediate Hives 05/15/21 Yes Physical Exam Physical Exam Constitutional: Well developed, well nourished, no acute distress, non-toxic appearance. HENT: Normocephalic, atraumatic, bilateral external ears normal, mucosa moist, nose normal. Eyes: EOMI, conjunctiva normal, no discharge. Neck: Normal range of motion, supple, no stridor, no meningeal signs. Cardiovascular: Regular rate and rhythm Lungs & Thorax: Bilateral breath sounds clear to auscultation Abdomen: Soft, no tenderness or obvious masses Skin: Warm, dry, no erythema, no rash. Extremities: No tenderness, no cyanosis, no clubbing, ROM intact, no edema. Neurologic: Alert and oriented, normal motor function, normal sensory function, no focal deficits noted. Mild dysarthria is indeed present. Psychologic: Affect normal, judgement normal, mood normal. Current Patient Data Vital Signs Vital Signs Date Time Temp Pulse Resp B/P (MAP) Pulse Ox O2 Delivery O2 Flow Rate FiO2 05/15/21 10:43 64 122/72 (89) 95 Room Air 05/15/21 08:37 98.2 24 98.2 Lab Values Laboratory Tests Test 05/15/21 08:43 05/15/21 08:50 05/15/21 09:15 05/15/21 09:19 Glucose (Fingerstick) 91 mg/dL (70-99) White Blood Count 3.4 x10^3/uL (4.0-11.0) L Red Blood Count 4.54 x10^6/uL (3.50-5.40) Hemoglobin 13.7 g/dL (12.0-15.5) Hematocrit 41.6 % (36.0-47.0) Mean Corpuscular Volume 92 fL (79-100) Mean Corpuscular Hemoglobin 30 pg (25-35) Mean Corpuscular Hemoglobin Concent 33 g/dL (31-37) Red Cell Distribution Width 12.5 % (11.5-14.5) Platelet Count 184 x10^3/uL (140-400) Neutrophils (%) (Auto) 52 % (31-73) Lymphocytes (%) (Auto) 39 % (24-48) Monocytes (%) (Auto) 8 % (0-9) Eosinophils (%) (Auto) 1 % (0-3) Basophils (%) (Auto) 1 % (0-3) Neutrophils # (Auto) 1.8 x10^3/uL (1.8-7.7) Lymphocytes # (Auto) 1.3 x10^3/uL (1.0-4.8) Monocytes # (Auto) 0.3 x10^3/uL (0.0-1.1) Eosinophils # (Auto) 0.0 x10^3/uL (0.0-0.7) Basophils # (Auto) 0.0 x10^3/uL (0.0-0.2) Prothrombin Time 12.8 SEC (11.7-14.0) Prothrombin Time INR 1.0 (0.8-1.1) Activated Partial Thromboplast Time 31 SEC (24-38) Sodium Level 141 mmol/L (136-145) Potassium Level 3.8 mmol/L (3.5-5.1) Chloride Level 105 mmol/L (98-107) Carbon Dioxide Level 30 mmol/L (21-32) Anion Gap 6 (6-14) Blood Urea Nitrogen 14 mg/dL (7-20) Creatinine 0.8 mg/dL (0.6-1.0) Estimated GFR (Cockcroft-Gault) 72.0 BUN/Creatinine Ratio 18 (6-20) Glucose Level 94 mg/dL (70-99) Lactic Acid Level 0.8 mmol/L (0.4-2.0) Calcium Level 8.9 mg/dL (8.5-10.1) Magnesium Level 2.1 mg/dL (1.8-2.4) Total Bilirubin 0.4 mg/dL (0.2-1.0) Aspartate Amino Transferase (AST) 21 U/L (15-37) Alanine Aminotransferase (ALT) 33 U/L (14-59) Alkaline Phosphatase 80 U/L (46-116) Troponin I High Sensitivity 5 ng/L (4-50) Total Protein 7.0 g/dL (6.4-8.2) Albumin 3.9 g/dL (3.4-5.0) Albumin/Globulin Ratio 1.3 (1.0-1.7) Lipase 60 U/L (73-393) L Ethyl Alcohol Level < 10 mg/dL (0-10) Influenza Type A Antigen Negative (NEGATIVE) Influenza Type B Antigen Negative (NEGATIVE) SARS-CoV-2 Antigen (Rapid) Negative (NEGATIVE) Urine Collection Type Unknown Urine Color Yellow Urine Clarity Clear Urine pH 7.5 (<5.0-8.0) Urine Specific [place] 1.020 (1.000-1.030) Urine Protein Negative mg/dL (NEG-TRACE) Urine Glucose (UA) Negative mg/dL (NEG) Urine Ketones (Stick) Negative mg/dL (NEG) Urine Blood Negative (NEG) Urine Nitrite Negative (NEG) Urine Bilirubin Negative (NEG) Urine Urobilinogen Dipstick 0.2 mg/dL (0.2 mg/dL) Urine Leukocyte Esterase Trace (NEG) Urine RBC 0 /HPF (0-2) Urine WBC 1-4 /HPF (0-4) Urine Squamous Epithelial Cells Occ /LPF Urine Amorphous Sediment Present /HPF Urine Bacteria 0 /HPF (0-FEW) Urine Opiates Screen Neg (NEG) Urine Methadone Screen Neg (NEG) Urine Barbiturates Neg (NEG) Urine Phencyclidine Screen Neg (NEG) Urine Amphetamine/Methamphetamine Neg (NEG) Urine Benzodiazepines Screen Neg (NEG) Urine Cocaine Screen Neg (NEG) Urine Cannabinoids Screen Neg (NEG) Urine Ethyl Alcohol Neg (NEG) Laboratory Tests 05/15/21 08:50 Laboratory Tests 05/15/21 08:50 EKG EKG [] Interpretation Time: 12 EKG demonstrates a sinus rhythm with a rate of 98. CO, QRS and QT corrected intervals within normal limits. No ST segment elevation or depression. Radiology/Procedures Radiology/Procedures [] Impressions: ATIENT: CLARKE PAGE CACCOUNT: [id number]#: [id number] : 1955 LOCATION: ER AGE: 66 SEX: F EXAM STATUS: REG ER ORD. PHYSICIAN: ERVIN OSORIO MD REASON: slurred speech PROCEDURE: CHEST AP ONLY AP chest. HISTORY: Slurred speech AP view was taken of the chest. Lungs are clear. There are clips in the left axilla from prior surgery. There is a left pacemaker with atrial and ventricular pacing leads. There is no effusion. IMPRESSION: 1. No acute infiltrates. Electronically signed by: Celio Alfredo MD (05/15/2021 9:35 AM) [facility] DICTATED and SIGNED BY: CELIO ALFREDO MD DATE: 05/15/[id number] 0 PATIENT: CLARKE PAGE ACCOUNT: [id number] : 1955 LOCATION: ER AGE: 66 SEX: F EXAM STATUS: REG ER ORD. PHYSICIAN: ERVIN OSORIO MD REASON: slurred speech PROCEDURE: CT HEAD WO CONTRAST CT HEAD/BRAIN WO History: Reason: slurred speech / Spl. Instructions: / History: Comparison: None. Technique: Noncontrast CT imaging was performed of the head. Exposure: One or more of the following individualized dose reduction techniques were utilized for this examination: 1. Automated exposure control 2. Adjustment of the mA and/or kV according to patient size 3. Use of iterative reconstruction technique. Findings: No intracranial hemorrhage. No mass effect. No hydrocephalus. Mild foci of decreased attenuation within hemispheric white matter, most often due to chronic microvascular ischemia. Partially empty sella, often incidental. Imaged orbits are unremarkable. Imaged paranasal sinuses and mastoid air cells are clear. No acute calvarial fracture. TMJ arthropathy. Impression: 1. No acute intracranial abnormality. Electronically signed by: Adan Cardona DO (05/15/2021 9:19 AM) [id number] DICTATED and SIGNED BY: ADAN CARDONA DO DATE: 05/15/[id number] 0 PATIENT: CLARKE PAGE ACCOUNT: [id number] : 1955 LOCATION: ER AGE: 66 SEX: F EXAM STATUS: REG ER ORD. PHYSICIAN: ERVIN OSORIO MD REASON: trauma PROCEDURE: CT CHEST ABD PELVIS W/CONTRAST CT CHEST+ABD+PELVIS W History: Trauma. Pain. Comparison: CT abdomen and pelvis 07/26/2020. Technique: CT of the chest, abdomen and pelvis with intravenous contrast Findings: Left chest dual-chamber cardiac pacemaker. The thyroid is unremarkable. Right lower cervical lymph node measures 9 mm short axis with partial calcification (axial 7). The aorta is normal in caliber. No aneurysm or dissection. Pulmonary arteries are unremarkable. No mediastinal hemorrhage or hematoma. No enlarged mediastinal or hilar adenopathy. The airways are clear. No pleural effusion or pneumothorax. Mild bilateral dependent lung changes. Right lower lobe 5 mm pulmonary nodule (axial 27). Left axillary surgical clips. Mild degenerative changes in the thoracic spine. No acute osseous abnormality. No free intraperitoneal air or fluid. The liver is unremarkable. The gallbladder is surgically absent. Pancreas, spleen and adrenal glands are unremarkable. No renal hydronephrosis. Inferior pole left kidney punctate 3 mm nonobstructing stone. No bladder is within normal limits. Status post hysterectomy. No pelvic masses. The stomach and small bowel are unremarkable. Atherosclerotic calcifications of the aorta. The soft tissues are unremarkable. No acute osseous abnormality. Impression: 1. No acute findings in the chest, abdomen and pelvis. 2. Right lower lobe 5 mm pulmonary nodule. Recommend follow-up according to 2017 Fleischner Society Guidelines for solid pulmonary nodules: <6 mm: In a low risk patient, no routine follow-up. In a high risk patient (history of smoking or other known risk factors), optional CT at 12 months. Certain paitents with suspicious nodule morphology, upper lobe location, or both may warrant 12-month follow-up. 3. Nonobstructing left nephrolithiasis. ------ Exposure: One or more of the following individualized dose reduction techniques were utilized for this examination: 1. Automated exposure control 2. Adjustment of the mA and/or kV according to patient size 3. Use of iterative reconstruction technique. Electronically signed by: Nhan Mcclure MD (05/15/2021 11:34 AM) [id number] DICTATED and SIGNED BY: NHAN MCCLURE MD DATE: 05/15/21 [id number] Course & Med Decision Making Course & Med Decision Making Pertinent Labs and Imaging studies reviewed. (See chart for details) [] Is a 66-year-old female with dysarthria. CT of the head was negative for any acute process and lab studies were unrevealing. I went back to reassess the patient she was complaining about left upper quadrant pain and stated that she had fallen a couple of days ago. We have added on a CT of the abdomen and pelvis, scan is negative and labs are otherwise unremarkable. On reassessment of her speech is returned to normal. We will keep her in the hospital for observation. I spoke with the hospitalist has been kind enough to admit her, patient is in stable condition at this time. Dragon Disclaimer Dragon Disclaimer This electronic medical record was generated, in whole or in part, using a voice recognition dictation system. Departure Departure Impression: Primary Impression: Dysarthria Disposition: ADMITTED INPATIENT Condition: IMPROVED Referrals: DONNY ZHONG (PCP) ERVIN OSORIO MD May 15, 2021 12:10
[2021-05-15 13:30] VITALS: BP 139/73
[2021-05-15] MEDS ORDERED: HYDROcodone/APAP 5/325MG 1 TAB TABLET PO PRN (15:30)
[2021-05-15] MEDS ORDERED: ASA/APAP/CAFFEINE 250/250/65MG TABLET. PO PRN (15:30)
[2021-05-15] MEDS ORDERED: ONDANSETRON ODT 4 MG TAB.RAPDIS. PO PRN (16:00)
[2021-05-15] MEDS ORDERED: fentaNYL PF VIAL 100 MCG/2 ML VIAL IVP PRN (16:00)
[2021-05-15] MEDS ORDERED: hydrALAZINE 20 MG/ML VIAL. IVP PRN (16:00)
[2021-05-15] MEDS ORDERED: ACETAMINOPHEN 325 MG TABLET. PO PRN (16:00)
[2021-05-15] MEDS ORDERED: ONDANSETRON PF 4 MG/2 ML VIAL. IVP PRN (16:00)
[2021-05-15] MEDS ORDERED: guaiFENesin DM 200MG/20MG 10 ML SYRUP PO PRN (16:00)
[2021-05-15] MEDS: CLOPIDOGREL BISULFATE 75 MG TABLET PO SCH (16:02)
[2021-05-15] MEDS: ASPIRIN ENTERIC COATED 81 MG TABLET.DR. PO SCH (16:02)
--- NOTE | 2021-05-15 16:35 | PDOC2 ---
NEUROLOGY CONSULT Date of Service DOS: DATE: 05/15/21 TIME: 16:25 Reason for Consult Reason for Consult: Dysarthria Referring Physician Referring Physician: Dr. Pierce Source Source: Chart review, Patient History of Present Illness History of Present Illness The patient is a 66-year-old right-handed female who is going to have breast reduction surgery this morning but was complaining of dysarthria. She was brought to the emergency department. She had a CT of the head which was negative. I saw her on 10/17/2020 regarding neck and head pain, loopiness, and limited movement of the head and neck. 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 During her [facility] hospital stay she had a second stroke to cause numbness on the right side of the body. She went through physical therapy and rehabilitation. 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 She also has a history of migraine headaches with photo phonophobia and nausea up to several times a month. She was going to see Dr. De Leon regarding her cervical spondylosis at multiple levels as reviewed below, but then decided that she would try breast reduction surgery first. Past Medical History Cardiovascular: CAD, HTN, Other (Sick sinus syndrome?) Pulmonary: Asthma, Other (Obstructive sleep apnea) CENTRAL NERVOUS SYSTEM: CVA GI: Peptic Ulcer disease Hepatobiliary: Cholelithiasis Psych: Anxiety, Depression ENT: Other (Hearing loss in the right ear) Past Surgical History Past Surgical History: Pacemaker, Cholecystectomy, Cataract Removal, Hysterectomy, Other (Bilateral carpal tunnel syndrome, removal of skin cancer and lymph nodes from the left breast, sinus surgery) Family History Family History: Other (Alzheimer's, COPD) Social History Social History , retired, no alcohol or tobacco Current Medications Current Medications Current Medications Iohexol (Omnipaque 300 Mg/ml) 75 ml 1X ONCE IV Last administered on 05/15/21at 10:56; Start 05/15/21 at 10:45; Stop 05/15/21 at 10:46; Status DC Info (CONTRAST GIVEN -- Rx MONITORING) 1 each PRN DAILY PRN MC SEE COMMENTS; Start 05/15/21 at 10:45; Stop 05/17/21 at 10:44 Aspirin (Ecotrin) 81 mg DAILY PO Last administered on 05/15/21at 16:02; Start 05/15/21 at 15:30 Acetaminophen/ Aspirin/Caffeine (Excedrin Migraine) 1 tab PRN Q6HRS PRN PO MIGRAINE HEADACHE; Start 05/15/21 at 15:30 Clopidogrel Bisulfate (Plavix) 75 mg DAILY PO Last administered on 05/15/21at 16:02; Start 05/15/21 at 15:30 Acetaminophen/ Hydrocodone Bitart (Lortab 5/325) 1 tab PRN Q6HRS PRN PO MODERATE TO SEVERE PAIN; Start 05/15/21 at 15:30 Atorvastatin Calcium (Lipitor) 80 mg QHS PO ; Start 05/15/21 at 21:00 Cetirizine HCl (ZyrTEC) 10 mg DAILY PO ; Start 05/16/21 at 09:00 Multivitamins (Thera M Plus) 1 tab DAILY PO ; Start 05/16/21 at 09:00 Pseudoephedrine HCl (Sudafed 12-Hour) 120 mg DAILY PO ; Start 05/16/21 at 09:00 Enoxaparin Sodium (Lovenox 40mg Syringe) 40 mg Q24H SQ ; Start 05/15/21 at 17:00 Psyllium Hydrophilic Mucilloid (Metamucil Fiber Packet) 1 pkt QHS PO ; Start 05/15/21 at 21:00 Ondansetron HCl (Zofran Odt) 4 mg PRN Q4HRS PRN PO NAUSEA; Start 05/15/21 at 16:00 Acetaminophen (Tylenol) 650 mg PRN Q6HRS PRN PO MILD PAIN / TEMP > 100.3'F; Start 05/15/21 at 16:00 Fentanyl Citrate (Fentanyl 2ml Vial) 25 mcg PRN Q3HRS PRN IVP SEVERE PAIN 7-10; Start 05/15/21 at 16:00 Ondansetron HCl (Zofran) 4 mg PRN Q4HRS PRN IVP NAUSEA/VOMITING; Start 05/15/21 at 16:00 Guaifenesin (Robitussin Dm) 10 ml PRN Q6HRS PRN PO COUGH; Start 05/15/21 at 16:00 Hydralazine HCl (Apresoline Inj) 10 mg PRN Q4HRS PRN IVP ELEVATED BP, SEE COMMENTS; Start 05/15/21 at 16:00 Active Scripts Active Hydrocodone-Apap 5-325 (Hydrocodone Bit/Acetaminophen) 1 Tab Tablet 1 Tab PO PRN Q6HRS PRN Reported Zyrtec-D Tablet (Cetirizine Hcl/Pseudoephedrine) 1 Each Tab.er.12h 1 Tab PO DAILY Excedrin Migraine Caplet (Aspirin/Acetaminophen/Caffeine) 1 Each Tablet 1 Each PO Q6HRS PRN Multivitamins (Multivitamin) 1 Each Tablet 1 Tab PO DAILY [epi pen] PRN Lipitor (Atorvastatin Calcium) 80 Mg Tablet 1 Tab PO DAILY Clopidogrel (Clopidogrel Bisulfate) 75 Mg Tablet 1 Tab PO DAILY Aspirin Ec (Aspirin) 81 Mg Tablet. 1 Tab PO DAILY Allergies Allergies: Coded Allergies: Influenza Virus Vaccines (Verified Allergy, Intermediate, Anaphylaxis, 05/15/21) codeine (Verified Allergy, Intermediate, Rash, 05/15/21) abdominal pain hydromorphone (Verified Allergy, Intermediate, Rash, 05/15/21) latex (Verified Allergy, Intermediate, Hives, 05/15/21) nitrofurantoin (Verified Allergy, Intermediate, Anxiety, 05/15/21) hallucination,hives sulfadiazine (Verified Allergy, Intermediate, Hives, 05/15/21) ROS Review of System Negative for fever, chills, weight loss, chest pain, indigestion, hematochezia, melena, and dysuria. Positive for occasional dyspnea. Full 14-point review of systems is negative. Physical Exam Physical Examination General: Well-developed, well-nourished, white female, in no acute distress HEENT: Normocephalic andatraumatic. Temporal arteriespulsatile and nontender. Neck: Supple without bruit, no meningismus Musculoskeletal: Stability:see neurologic. Gait exam:see neurologic. Tone:see neurologic.Strength:see neurologic. Neurological: Mental Status:intact, orientation, memory, attention span/concentration, language, fund of knowledge: Speech is hesitant, there is some dysarthria, I do not recall this is any different from when I saw her 7 months ago. Cranial Nerves:Pupils equal and reactive to light, extraocular movements areintact, visual benton are full to confrontation. Facial sensation is normal. There is no facial asymmetry. Vestibulo-ocular reflex is intact. Palate elevates and tongue protrudes in midline. All other cranial related problems are negative except as mentioned before.Reflexes:2+ and symmetric with flexor plantar responses. Motor:5/5 strength with normal tone and bulk. Coordination:Finger-nose finger and [id number] testing are normal. Rapid alternating movements and fine finger movements are intact. Gait:Not tested. Sensory:Normal pinprick, vibration, light touch, proprioception. Vitals VITALS Vital Signs Date Time Temp Pulse Resp B/P (MAP) Pulse Ox O2 Delivery O2 Flow Rate FiO2 05/15/21 13:03 72 119/68 (85) 96 Room Air 05/15/21 08:37 98.2 24 98.2 Labs Labs Laboratory Tests Test 05/15/21 08:43 05/15/21 08:50 05/15/21 09:15 05/15/21 09:19 Glucose (Fingerstick) 91 mg/dL (70-99) White Blood Count 3.4 x10^3/uL (4.0-11.0) Red Blood Count 4.54 x10^6/uL (3.50-5.40) Hemoglobin 13.7 g/dL (12.0-15.5) Hematocrit 41.6 % (36.0-47.0) Mean Corpuscular Volume 92 fL (79-100) Mean Corpuscular Hemoglobin 30 pg (25-35) Mean Corpuscular Hemoglobin Concent 33 g/dL (31-37) Red Cell Distribution Width 12.5 % (11.5-14.5) Platelet Count 184 x10^3/uL (140-400) Neutrophils (%) (Auto) 52 % (31-73) Lymphocytes (%) (Auto) 39 % (24-48) Monocytes (%) (Auto) 8 % (0-9) Eosinophils (%) (Auto) 1 % (0-3) Basophils (%) (Auto) 1 % (0-3) Neutrophils # (Auto) 1.8 x10^3/uL (1.8-7.7) Lymphocytes # (Auto) 1.3 x10^3/uL (1.0-4.8) Monocytes # (Auto) 0.3 x10^3/uL (0.0-1.1) Eosinophils # (Auto) 0.0 x10^3/uL (0.0-0.7) Basophils # (Auto) 0.0 x10^3/uL (0.0-0.2) Prothrombin Time 12.8 SEC (11.7-14.0) Prothromb Time International Ratio 1.0 (0.8-1.1) Activated Partial Thromboplast Time 31 SEC (24-38) Sodium Level 141 mmol/L (136-145) Potassium Level 3.8 mmol/L (3.5-5.1) Chloride Level 105 mmol/L (98-107) Carbon Dioxide Level 30 mmol/L (21-32) Anion Gap 6 (6-14) Blood Urea Nitrogen 14 mg/dL (7-20) Creatinine 0.8 mg/dL (0.6-1.0) Estimated GFR (Cockcroft-Gault) 72.0 BUN/Creatinine Ratio 18 (6-20) Glucose Level 94 mg/dL (70-99) Lactic Acid Level 0.8 mmol/L (0.4-2.0) Calcium Level 8.9 mg/dL (8.5-10.1) Magnesium Level 2.1 mg/dL (1.8-2.4) Total Bilirubin 0.4 mg/dL (0.2-1.0) Aspartate Amino Transf (AST/SGOT) 21 U/L (15-37) Alanine Aminotransferase (ALT/SGPT) 33 U/L (14-59) Alkaline Phosphatase 80 U/L (46-116) Troponin I High Sensitivity 5 ng/L (4-50) Total Protein 7.0 g/dL (6.4-8.2) Albumin 3.9 g/dL (3.4-5.0) Albumin/Globulin Ratio 1.3 (1.0-1.7) Lipase 60 U/L (73-393) Ethyl Alcohol Level < 10 mg/dL (0-10) Influenza Type A Antigen Negative (NEGATIVE) Influenza Type B Antigen Negative (NEGATIVE) SARS-CoV-2 Antigen (Rapid) Negative (NEGATIVE) Urine Collection Type Unknown Urine Color Yellow Urine Clarity Clear Urine pH 7.5 (<5.0-8.0) Urine Specific [place] 1.020 (1.000-1.030) Urine Protein Negative mg/dL (NEG-TRACE) Urine Glucose (UA) Negative mg/dL (NEG) Urine Ketones (Stick) Negative mg/dL (NEG) Urine Blood Negative (NEG) Urine Nitrite Negative (NEG) Urine Bilirubin Negative (NEG) Urine Urobilinogen Dipstick 0.2 mg/dL (0.2 mg/dL) Urine Leukocyte Esterase Trace (NEG) Urine RBC 0 /HPF (0-2) Urine WBC 1-4 /HPF (0-4) Urine Squamous Epithelial Cells Occ /LPF Urine Amorphous Sediment Present /HPF Urine Bacteria 0 /HPF (0-FEW) Urine Opiates Screen Neg (NEG) Urine Methadone Screen Neg (NEG) Urine Barbiturates Neg (NEG) Urine Phencyclidine Screen Neg (NEG) Urine Amphetamine/Methamphetamine Neg (NEG) Urine Benzodiazepines Screen Neg (NEG) Urine Cocaine Screen Neg (NEG) Urine Cannabinoids Screen Neg (NEG) Urine Ethyl Alcohol Neg (NEG) Laboratory Tests Test 05/15/21 08:43 05/15/21 08:50 05/15/21 09:15 05/15/21 09:19 Glucose (Fingerstick) 91 mg/dL (70-99) White Blood Count 3.4 x10^3/uL (4.0-11.0) Red Blood Count 4.54 x10^6/uL (3.50-5.40) Hemoglobin 13.7 g/dL (12.0-15.5) Hematocrit 41.6 % (36.0-47.0) Mean Corpuscular Volume 92 fL (79-100) Mean Corpuscular Hemoglobin 30 pg (25-35) Mean Corpuscular Hemoglobin Concent 33 g/dL (31-37) Red Cell Distribution Width 12.5 % (11.5-14.5) Platelet Count 184 x10^3/uL (140-400) Neutrophils (%) (Auto) 52 % (31-73) Lymphocytes (%) (Auto) 39 % (24-48) Monocytes (%) (Auto) 8 % (0-9) Eosinophils (%) (Auto) 1 % (0-3) Basophils (%) (Auto) 1 % (0-3) Neutrophils # (Auto) 1.8 x10^3/uL (1.8-7.7) Lymphocytes # (Auto) 1.3 x10^3/uL (1.0-4.8) Monocytes # (Auto) 0.3 x10^3/uL (0.0-1.1) Eosinophils # (Auto) 0.0 x10^3/uL (0.0-0.7) Basophils # (Auto) 0.0 x10^3/uL (0.0-0.2) Prothrombin Time 12.8 SEC (11.7-14.0) Prothromb Time International Ratio 1.0 (0.8-1.1) Activated Partial Thromboplast Time 31 SEC (24-38) Sodium Level 141 mmol/L (136-145) Potassium Level 3.8 mmol/L (3.5-5.1) Chloride Level 105 mmol/L (98-107) Carbon Dioxide Level 30 mmol/L (21-32) Anion Gap 6 (6-14) Blood Urea Nitrogen 14 mg/dL (7-20) Creatinine 0.8 mg/dL (0.6-1.0) Estimated GFR (Cockcroft-Gault) 72.0 BUN/Creatinine Ratio 18 (6-20) Glucose Level 94 mg/dL (70-99) Lactic Acid Level 0.8 mmol/L (0.4-2.0) Calcium Level 8.9 mg/dL (8.5-10.1) Magnesium Level 2.1 mg/dL (1.8-2.4) Total Bilirubin 0.4 mg/dL (0.2-1.0) Aspartate Amino Transf (AST/SGOT) 21 U/L (15-37) Alanine Aminotransferase (ALT/SGPT) 33 U/L (14-59) Alkaline Phosphatase 80 U/L (46-116) Troponin I High Sensitivity 5 ng/L (4-50) Total Protein 7.0 g/dL (6.4-8.2) Albumin 3.9 g/dL (3.4-5.0) Albumin/Globulin Ratio 1.3 (1.0-1.7) Lipase 60 U/L (73-393) Ethyl Alcohol Level < 10 mg/dL (0-10) Influenza Type A Antigen Negative (NEGATIVE) Influenza Type B Antigen Negative (NEGATIVE) SARS-CoV-2 Antigen (Rapid) Negative (NEGATIVE) Urine Collection Type Unknown Urine Color Yellow Urine Clarity Clear Urine pH 7.5 (<5.0-8.0) Urine Specific [place] 1.020 (1.000-1.030) Urine Protein Negative mg/dL (NEG-TRACE) Urine Glucose (UA) Negative mg/dL (NEG) Urine Ketones (Stick) Negative mg/dL (NEG) Urine Blood Negative (NEG) Urine Nitrite Negative (NEG) Urine Bilirubin Negative (NEG) Urine Urobilinogen Dipstick 0.2 mg/dL (0.2 mg/dL) Urine Leukocyte Esterase Trace (NEG) Urine RBC 0 /HPF (0-2) Urine WBC 1-4 /HPF (0-4) Urine Squamous Epithelial Cells Occ /LPF Urine Amorphous Sediment Present /HPF Urine Bacteria 0 /HPF (0-FEW) Urine Opiates Screen Neg (NEG) Urine Methadone Screen Neg (NEG) Urine Barbiturates Neg (NEG) Urine Phencyclidine Screen Neg (NEG) Urine Amphetamine/Methamphetamine Neg (NEG) Urine Benzodiazepines Screen Neg (NEG) Urine Cocaine Screen Neg (NEG) Urine Cannabinoids Screen Neg (NEG) Urine Ethyl Alcohol Neg (NEG) Images Images CT HEAD/BRAIN WO History: Reason: slurred speech / Spl. Instructions: / History: Comparison: None. Technique: Noncontrast CT imaging was performed of the head. Exposure: One or more of the following individualized dose reduction techniques were utilized for this examination: 1. Automated exposure control 2. Adjustment of the mA and/or kV according to patient size 3. Use of iterative reconstruction technique. Findings: No intracranial hemorrhage. No mass effect. No hydrocephalus. Mild foci of decreased attenuation within hemispheric white matter, most often due to chronic microvascular ischemia. Partially empty sella, often incidental. Imaged orbits are unremarkable. Imaged paranasal sinuses and mastoid air cells are clear. No acute calvarial fracture. TMJ arthropathy. Impression: 1. No acute intracranial abnormality. Brain MRI, 07/15/20, no acute abnormality Cervical MRI, 07/15/20, mild disc disease at C4-5, C5-6, C6-7, severe left and moderate right C6-7 neural foraminal stenosis, compresses exciting C7 nerve roots Carotid Doppler, 07/15/20, occluded left vertebral artery. Assessment/Plan Assessment/Plan Impression: She has a history of brainstem stroke following left vertebral artery dissection and intermittently has symptoms from it especially when she is tired. She is off her aspirin and clopidogrel for her surgery which may have contributed. She also has a component of migraine headaches that could contribute. She has severe cervical spondylosis but is wanting to try breast reduction surgery first. I doubt that she has had an acute stroke. Recommendations: MRI is problematic with her pacemaker, and we will hold off on this for now I will check a CT angiogram Note that her aspirin and clopidogrel have been resumed and she is also on a statin Observation Thank you for letting me help with the patient's care. JANNIE WAGNER MD May 15, 2021 16:35
[2021-05-15] MEDS ORDERED: IOHEXOL 350 MG/ML 100 ML VIAL. IV ONE (16:45)
[2021-05-15] MEDS ORDERED: ENOXAPARIN 40 MG/0.4 ML SYRINGE. SQ SCH (17:00)
[2021-05-15 19:40] VITALS: BP 125/58
[2021-05-15] MEDS ORDERED: PSYLLIUM HUSK (SUGAR FREE) 1 PKT PACKET PO SCH (21:00)
[2021-05-15] MEDS ORDERED: ATORVASTATIN CALCIUM 40 MG TABLET. PO SCH (21:00)
[2021-05-15] MEDS ORDERED: IOHEXOL 350 MG/ML 100 ML VIAL. ONE (21:52)
--- NOTE | 2021-05-15 21:55 | NUR ---
Patient to CT per wheelchair.
--- NOTE | 2021-05-15 22:12 | NUR ---
Patient back from CT. Patient assisted to bed and assisted Patient with distilled water for CPAP. Patient denies any c/o. Call light in reach, will monitor.
--- NOTE | 2021-05-15 22:43 | RAD ---
CTA head and neck with contrast dated 05/15/2021 Comparison: Noncontrast head CT dated same day. CLINICAL INDICATION: History of brainstem stroke. New Brainstem symptoms. History of prior dissection . Technique: Contiguous axial imaging the head was performed from skull base to vertex without contrast administra tion. Subsequently, a CTA of the head and neck was acquired following the intravenous administration of 75 cc Omnipaque 350. Thin cut coronal and sagittal MIPS reconstructions and 3-D rotational reconst ruction. One or more of the following individualized dose reduction techniques were utilized for this examinat ion: 1. Automated exposure control 2. Adjustment of the mA and/or kV according to patient size 3. Use of iterative reconstruction technique. Carotid Stenosis calculations for CT, MR, and conventional angiography are based upon measurements of the distal ICA diameter in accordance with the NASCET methodology. Stenosis calculations for carotid ultrasound studies are derived from validated velocity criteria which are known to correlate with th e NASCET methodology. FINDINGS: Contrast bolus is adequate. Aortic arch is normal in caliber. Arch anatomy is standard. Bilateral sub clavian arteries are patent. The left vertebral artery is not identified and may be occluded at or ne ar its origin. Proximal right vertebral artery is somewhat limited in evaluation due to artifact. The distal vessel is patent to the skull base. No intimal flap or focal stenosis. The intradural right v ertebral artery is patent. There is some reconstitution of flow of the intradural left vertebral whic h is very small. The basilar artery is well formed. Bilateral VARIOUS EXCEPTIONALITIES TEACHER are patent. There is origin o f the right VARIOUS EXCEPTIONALITIES TEACHER with near origin of the left VARIOUS EXCEPTIONALITIES TEACHER. Bilateral common carotid arteries are patent. Mild calcific plaque at the right carotid bifurcation. No significant stenosis of the internal carotid arteries. The petrous and cavernous segments are cruz nt. SANDRA and MCA branches are patent. No evidence of aneurysm. No large vessel occlusion. Postcontrast imaging the brain shows no abnormal enhancement. The dural venous sinuses are grossly pa tent. No signal soft tissue abnormality. There are borderline enlarged bilateral cervical chain lymph nodes, nonspecific. Lung apices are grossly clear. There is a small noncalcified subpleural nodule i n the posterior aspect of the left upper lobe measuring about 5 mm, nonspecific. No significant bony abnormality. IMPRESSION: 1. The left vertebral artery is not identified and may be occluded at its origin. This could be acute or chronic. Correlate clinically. If indicated, MRI could better evaluate. 2. No evidence of right vertebral artery stenosis or significant basilar artery stenosis. 3. No evidence of hemodynamically significant stenosis or aneurysm involving the anterior circulation . IMPRESSION: 1. Electronically signed by: Pilo Alexis MD (05/15/2021 10:41 PM) CAROLYN
[2021-05-15 23:15] VITALS: BP 122/65
[2021-05-16 02:35] VITALS: BP 121/69
[2021-05-16 03:35] VITALS: BP 121/69
[2021-05-16 06:27] LABS: BASO % 1 % (0-3); EOS % 1 % (0-3); HEMATOCRIT 39.3 % (36.0-47.0); HEMOGLOBIN 13.4 g/dL (12.0-15.5); LYMPH # 1.2 x10^3/uL (1.0-4.8); LYMPH % 39 % (24-48); MEAN CORPUSCULAR HEMOGLOBIN 31 pg (25-35); MEAN CORPUSCULAR HGB CONC 34 g/dL (31-37); MEAN CORPUSCULAR VOLUME 89 fL (79-100); MONO # 0.3 x10^3/uL (0.0-1.1); MONO % 8 % (0-9); NEUT # 1.6 x10^3/uL (1.8-7.7); NEUT % 51 % (31-73); PLATELET COUNT 176 x10^3/uL (140-400); RED BLOOD COUNT 4.39 x10^6/uL (3.50-5.40); RED CELL DISTRIBUTION WIDTH 12.5 % (11.5-14.5); WHITE BLOOD COUNT 3.2 x10^3/uL (4.0-11.0)
[2021-05-16 07:00] VITALS: BP 133/64
--- NOTE | 2021-05-16 07:25 | EKG ---
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
[2021-05-16] MEDS: ASPIRIN ENTERIC COATED 81 MG TABLET.DR. PO SCH (08:22)
[2021-05-16] MEDS: CLOPIDOGREL BISULFATE 75 MG TABLET PO SCH (08:22)
--- NOTE | 2021-05-16 08:57 | PDOC ---
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 She is off her aspirin and clopidogrel for her surgery which may have contributed. She also has a component of migraine headaches that could contribute. In addition, she fell and may have had a mild concussion. In any event she is doing much better. CT angiogram redemonstrates the left vertebral artery occlusion, nothing else relevant She has severe cervical spondylosis but is wanting to try breast reduction surgery first. I doubt that she has had an acute stroke. Plan Aspirin, clopidogrel, statin Okay for discharge She plans to retry the breast reduction surgery in 3 weeks; okay to stop the aspirin and clopidogrel for the surgery She is not interested in the escitalopram for migraine phenomenon Follow-up with me as needed Subjective No complaints, feels much better, wants to go home Objective Vital Signs Date Time Temp Pulse Resp B/P (MAP) Pulse Ox O2 Delivery O2 Flow Rate FiO2 05/16/21 02:35 97.6 99 18 121/69 (86) 94 Room Air 97.6 Intake and Output 05/16/21 07:00 Intake Total 450 ml Balance 450 ml Intake Oral 450 ml # Voids 3 PHYSICAL EXAM Alert. Oriented to time, place and person. PERRL. EOMI. CN: Dysarthria is better, less speech hesitancy Muscle tone: normal. Muscle strength: 5/5 DTR: 2+ Plantar reflex: Flexor Gait: not examined in bed. Sensory exam: no abnormal findings. No cerebellar signs elicited. Review of Relevant I have reviewed the following items sharon (where applicable) has been applied. Labs Laboratory Tests Test 05/15/21 08:43 05/15/21 08:50 05/15/21 09:15 05/15/21 09:19 Glucose (Fingerstick) 91 mg/dL (70-99) White Blood Count 3.4 x10^3/uL (4.0-11.0) Red Blood Count 4.54 x10^6/uL (3.50-5.40) Hemoglobin 13.7 g/dL (12.0-15.5) Hematocrit 41.6 % (36.0-47.0) Mean Corpuscular Volume 92 fL (79-100) Mean Corpuscular Hemoglobin 30 pg (25-35) Mean Corpuscular Hemoglobin Concent 33 g/dL (31-37) Red Cell Distribution Width 12.5 % (11.5-14.5) Platelet Count 184 x10^3/uL (140-400) Neutrophils (%) (Auto) 52 % (31-73) Lymphocytes (%) (Auto) 39 % (24-48) Monocytes (%) (Auto) 8 % (0-9) Eosinophils (%) (Auto) 1 % (0-3) Basophils (%) (Auto) 1 % (0-3) Neutrophils # (Auto) 1.8 x10^3/uL (1.8-7.7) Lymphocytes # (Auto) 1.3 x10^3/uL (1.0-4.8) Monocytes # (Auto) 0.3 x10^3/uL (0.0-1.1) Eosinophils # (Auto) 0.0 x10^3/uL (0.0-0.7) Basophils # (Auto) 0.0 x10^3/uL (0.0-0.2) Prothrombin Time 12.8 SEC (11.7-14.0) Prothromb Time International Ratio 1.0 (0.8-1.1) Activated Partial Thromboplast Time 31 SEC (24-38) Sodium Level 141 mmol/L (136-145) Potassium Level 3.8 mmol/L (3.5-5.1) Chloride Level 105 mmol/L (98-107) Carbon Dioxide Level 30 mmol/L (21-32) Anion Gap 6 (6-14) Blood Urea Nitrogen 14 mg/dL (7-20) Creatinine 0.8 mg/dL (0.6-1.0) Estimated GFR (Cockcroft-Gault) 72.0 BUN/Creatinine Ratio 18 (6-20) Glucose Level 94 mg/dL (70-99) Lactic Acid Level 0.8 mmol/L (0.4-2.0) Calcium Level 8.9 mg/dL (8.5-10.1) Magnesium Level 2.1 mg/dL (1.8-2.4) Total Bilirubin 0.4 mg/dL (0.2-1.0) Aspartate Amino Transf (AST/SGOT) 21 U/L (15-37) Alanine Aminotransferase (ALT/SGPT) 33 U/L (14-59) Alkaline Phosphatase 80 U/L (46-116) Troponin I High Sensitivity 5 ng/L (4-50) Total Protein 7.0 g/dL (6.4-8.2) Albumin 3.9 g/dL (3.4-5.0) Albumin/Globulin Ratio 1.3 (1.0-1.7) Lipase 60 U/L (73-393) Ethyl Alcohol Level < 10 mg/dL (0-10) Influenza Type A Antigen Negative (NEGATIVE) Influenza Type B Antigen Negative (NEGATIVE) SARS-CoV-2 Antigen (Rapid) Negative (NEGATIVE) Urine Collection Type Unknown Urine Color Yellow Urine Clarity Clear Urine pH 7.5 (<5.0-8.0) Urine Specific [place] 1.020 (1.000-1.030) Urine Protein Negative mg/dL (NEG-TRACE) Urine Glucose (UA) Negative mg/dL (NEG) Urine Ketones (Stick) Negative mg/dL (NEG) Urine Blood Negative (NEG) Urine Nitrite Negative (NEG) Urine Bilirubin Negative (NEG) Urine Urobilinogen Dipstick 0.2 mg/dL (0.2 mg/dL) Urine Leukocyte Esterase Trace (NEG) Urine RBC 0 /HPF (0-2) Urine WBC 1-4 /HPF (0-4) Urine Squamous Epithelial Cells Occ /LPF Urine Amorphous Sediment Present /HPF Urine Bacteria 0 /HPF (0-FEW) Urine Opiates Screen Neg (NEG) Urine Methadone Screen Neg (NEG) Urine Barbiturates Neg (NEG) Urine Phencyclidine Screen Neg (NEG) Urine Amphetamine/Methamphetamine Neg (NEG) Urine Benzodiazepines Screen Neg (NEG) Urine Cocaine Screen Neg (NEG) Urine Cannabinoids Screen Neg (NEG) Urine Ethyl Alcohol Neg (NEG) Test 05/16/21 04:50 White Blood Count 3.2 x10^3/uL (4.0-11.0) Red Blood Count 4.39 x10^6/uL (3.50-5.40) Hemoglobin 13.4 g/dL (12.0-15.5) Hematocrit 39.3 % (36.0-47.0) Mean Corpuscular Volume 89 fL (79-100) Mean Corpuscular Hemoglobin 31 pg (25-35) Mean Corpuscular Hemoglobin Concent 34 g/dL (31-37) Red Cell Distribution Width 12.5 % (11.5-14.5) Platelet Count 176 x10^3/uL (140-400) Neutrophils (%) (Auto) 51 % (31-73) Lymphocytes (%) (Auto) 39 % (24-48) Monocytes (%) (Auto) 8 % (0-9) Eosinophils (%) (Auto) 1 % (0-3) Basophils (%) (Auto) 1 % (0-3) Neutrophils # (Auto) 1.6 x10^3/uL (1.8-7.7) Lymphocytes # (Auto) 1.2 x10^3/uL (1.0-4.8) Monocytes # (Auto) 0.3 x10^3/uL (0.0-1.1) Eosinophils # (Auto) 0.0 x10^3/uL (0.0-0.7) Basophils # (Auto) 0.0 x10^3/uL (0.0-0.2) Laboratory Tests Test 05/15/21 09:15 05/15/21 09:19 05/16/21 04:50 Influenza Type A Antigen Negative (NEGATIVE) Influenza Type B Antigen Negative (NEGATIVE) SARS-CoV-2 Antigen (Rapid) Negative (NEGATIVE) Urine Collection Type Unknown Urine Color Yellow Urine Clarity Clear Urine pH 7.5 (<5.0-8.0) Urine Specific [place] 1.020 (1.000-1.030) Urine Protein Negative mg/dL (NEG-TRACE) Urine Glucose (UA) Negative mg/dL (NEG) Urine Ketones (Stick) Negative mg/dL (NEG) Urine Blood Negative (NEG) Urine Nitrite Negative (NEG) Urine Bilirubin Negative (NEG) Urine Urobilinogen Dipstick 0.2 mg/dL (0.2 mg/dL) Urine Leukocyte Esterase Trace (NEG) Urine RBC 0 /HPF (0-2) Urine WBC 1-4 /HPF (0-4) Urine Squamous Epithelial Cells Occ /LPF Urine Amorphous Sediment Present /HPF Urine Bacteria 0 /HPF (0-FEW) Urine Opiates Screen Neg (NEG) Urine Methadone Screen Neg (NEG) Urine Barbiturates Neg (NEG) Urine Phencyclidine Screen Neg (NEG) Urine Amphetamine/Methamphetamine Neg (NEG) Urine Benzodiazepines Screen Neg (NEG) Urine Cocaine Screen Neg (NEG) Urine Cannabinoids Screen Neg (NEG) Urine Ethyl Alcohol Neg (NEG) White Blood Count 3.2 x10^3/uL (4.0-11.0) Red Blood Count 4.39 x10^6/uL (3.50-5.40) Hemoglobin 13.4 g/dL (12.0-15.5) Hematocrit 39.3 % (36.0-47.0) Mean Corpuscular Volume 89 fL (79-100) Mean Corpuscular Hemoglobin 31 pg (25-35) Mean Corpuscular Hemoglobin Concent 34 g/dL (31-37) Red Cell Distribution Width 12.5 % (11.5-14.5) Platelet Count 176 x10^3/uL (140-400) Neutrophils (%) (Auto) 51 % (31-73) Lymphocytes (%) (Auto) 39 % (24-48) Monocytes (%) (Auto) 8 % (0-9) Eosinophils (%) (Auto) 1 % (0-3) Basophils (%) (Auto) 1 % (0-3) Neutrophils # (Auto) 1.6 x10^3/uL (1.8-7.7) Lymphocytes # (Auto) 1.2 x10^3/uL (1.0-4.8) Monocytes # (Auto) 0.3 x10^3/uL (0.0-1.1) Eosinophils # (Auto) 0.0 x10^3/uL (0.0-0.7) Basophils # (Auto) 0.0 x10^3/uL (0.0-0.2) Microbiology 05/15/21 Urine Culture - Final, Complete Medications Current Medications Iohexol (Omnipaque 300 Mg/ml) 75 ml 1X ONCE IV Last administered on 05/15/21at 10:56; Start 05/15/21 at 10:45; Stop 05/15/21 at 10:46; Status DC Info (CONTRAST GIVEN -- Rx MONITORING) 1 each PRN DAILY PRN MC SEE COMMENTS; Start 05/15/21 at 10:45; Stop 05/15/21 at 17:00; Status DC Aspirin (Ecotrin) 81 mg DAILY PO Last administered on 05/16/21at 08:22; Start 05/15/21 at 15:30 Acetaminophen/ Aspirin/Caffeine (Excedrin Migraine) 1 tab PRN Q6HRS PRN PO MIGRAINE HEADACHE; Start 05/15/21 at 15:30 Clopidogrel Bisulfate (Plavix) 75 mg DAILY PO Last administered on 05/16/21at 08:22; Start 05/15/21 at 15:30 Acetaminophen/ Hydrocodone Bitart (Lortab 5/325) 1 tab PRN Q6HRS PRN PO MODERATE TO SEVERE PAIN; Start 05/15/21 at 15:30 Atorvastatin Calcium (Lipitor) 80 mg QHS PO Last administered on 05/15/21at 22:17; Start 05/15/21 at 21:00 Cetirizine HCl (ZyrTEC) 10 mg DAILY PO Last administered on 05/16/21at 08:22; Start 05/16/21 at 09:00 Multivitamins (Thera M Plus) 1 tab DAILY PO Last administered on 05/16/21at 08:22; Start 05/16/21 at 09:00 Pseudoephedrine HCl (Sudafed 12-Hour) 120 mg DAILY PO Last administered on 05/16/21at 08:25; Start 05/16/21 at 09:00 Enoxaparin Sodium (Lovenox 40mg Syringe) 40 mg Q24H SQ ; Start 05/15/21 at 17:00 Psyllium Hydrophilic Mucilloid (Metamucil Fiber Packet) 1 pkt QHS PO Last administered on 05/15/21at 22:17; Start 05/15/21 at 21:00 Ondansetron HCl (Zofran Odt) 4 mg PRN Q4HRS PRN PO NAUSEA; Start 05/15/21 at 16:00 Acetaminophen (Tylenol) 650 mg PRN Q6HRS PRN PO MILD PAIN / TEMP > 100.3'F Last administered on 05/15/21at 19:31; Start 05/15/21 at 16:00 Fentanyl Citrate (Fentanyl 2ml Vial) 25 mcg PRN Q3HRS PRN IVP SEVERE PAIN 7-10; Start 05/15/21 at 16:00 Ondansetron HCl (Zofran) 4 mg PRN Q4HRS PRN IVP NAUSEA/VOMITING; Start 05/15/21 at 16:00 Guaifenesin (Robitussin Dm) 10 ml PRN Q6HRS PRN PO COUGH; Start 05/15/21 at 16:00 Hydralazine HCl (Apresoline Inj) 10 mg PRN Q4HRS PRN IVP ELEVATED BP, SEE CO MMENTS; Start 05/15/21 at 16:00 Iohexol (Omnipaque 350 Mg/ml) 75 ml 1X ONCE IV Last administered on 05/15/21at 22:00; Start 05/15/21 at 16:45; Stop 05/15/21 at 17:00; Status DC Iohexol (Omnipaque 350 Mg/ml) 100 ml STK-MED ONCE .ROUTE ; Start 05/15/21 at 21:52; Stop 05/15/21 at 21:52; Status DC Active Scripts Active Hydrocodone-Apap 5-325 (Hydrocodone Bit/Acetaminophen) 1 Tab Tablet 1 Tab PO PRN Q6HRS PRN Reported Zyrtec-D Tablet (Cetirizine Hcl/Pseudoephedrine) 1 Each Tab.er.12h 1 Tab PO DAILY Excedrin Migraine Caplet (Aspirin/Acetaminophen/Caffeine) 1 Each Tablet 1 Each PO Q6HRS PRN Multivitamins (Multivitamin) 1 Each Tablet 1 Tab PO DAILY [epi pen] PRN Lipitor (Atorvastatin Calcium) 80 Mg Tablet 1 Tab PO DAILY Clopidogrel (Clopidogrel Bisulfate) 75 Mg Tablet 1 Tab PO DAILY Aspirin Ec (Aspirin) 81 Mg Tablet. 1 Tab PO DAILY Vitals/I & O Vital Sign - Last 24 Hours 05/15/21 05/15/21 05/15/21 05/15/21 08:58 09:13 09:20 09:28 Pulse 96 84 90 70 B/P (MAP) 154/79 (104) 130/76 (94) 133/95 (108) Pulse Ox 98 99 99 98 O2 Delivery Room Air Room Air Room Air Room Air 05/15/21 05/15/21 05/15/21 05/15/21 09:43 09:58 10:13 10:28 Pulse 74 72 70 70 B/P (MAP) 127/79 (95) 135/72 (93) 130/73 (92) 125/77 (93) Pulse Ox 100 96 97 98 O2 Delivery Room Air Room Air Room Air Room Air 05/15/21 05/15/21 05/15/2122 10:43 10:59 11:29 12:03 Pulse 64 76 B/P (MAP) 122/72 (89) 140/75 (96) 147/80 (102) 140/75 (96) Pulse Ox 95 96 O2 Delivery Room Air Room Air Room Air Room Air 05/15/21 05/15/21 05/15/21 05/15/21 12:33 13:03 13:30 13:45 Temp 97.5 97.5 Pulse 74 72 70 Resp 18 B/P (MAP) 129/64 (85) 119/68 (85) 139/73 (95) Pulse Ox 98 96 94 O2 Delivery Room Air Room Air Room Air Room Air 05/15/21 05/15/21 05/15/21 05/16/21 19:40 20:01 23:15 02:35 Temp 97.9 97.7 97.6 97.9 97.7 97.6 Pulse 77 64 99 Resp 18 18 18 B/P (MAP) 125/58 (80) 122/65 (84) 121/69 (86) Pulse Ox 95 97 94 O2 Delivery Room Air Room Air BiPAP/CPAP Room Air Intake and Output 05/15/21 05/15/21 05/16/21 15:00 23:00 07:00 Intake Total 250 ml 200 ml Balance 250 ml 200 ml Images CTA head and neck with contrast dated 05/15/2021 Comparison: Noncontrast head CT dated same day. CLINICAL INDICATION: History of brainstem stroke. New Brainstem symptoms. History of prior dissection. Technique: Contiguous axial imaging the head was performed from skull base to vertex without contrast administration. Subsequently, a CTA of the head and neck was acquired following the intravenous administration of 75 cc Omnipaque 350. Thin cut coronal and sagittal MIPS reconstructions and 3-D rotational reconstruction. One or more of the following individualized dose reduction techniques were utilized for this examination: 1. Automated exposure control 2. Adjustment of the mA and/or kV according to patient size 3. Use of iterative reconstruction technique. Carotid Stenosis calculations for CT, MR, and conventional angiography are based upon measurements of the distal ICA diameter in accordance with the NASCET methodology. Stenosis calculations for carotid ultrasound studies are derived from validated velocity criteria which are known to correlate with the NASCET methodology. FINDINGS: Contrast bolus is adequate. Aortic arch is normal in caliber. Arch anatomy is standard. Bilateral subclavian arteries are patent. The left vertebral artery is not identified and may be occluded at or near its origin. Proximal right vertebral artery is somewhat limited in evaluation due to artifact. The distal vessel is patent to the skull base. No intimal flap or focal stenosis. The intradural right vertebral artery is patent. There is some reconstitution of flow of the intradural left vertebral which is very small. The basilar artery is well formed. Bilateral [employer] are patent. There is origin of the right [employer] with near origin of the left [employer]. Bilateral common carotid arteries are patent. Mild calcific plaque at the right carotid bifurcation. No significant stenosis of the internal carotid arteries. The petrous and cavernous segments are patent. SANDRA and MCA branches are patent. No evidence of aneurysm. No large vessel occlusion. Postcontrast imaging the brain shows no abnormal enhancement. The dural venous sinuses are grossly patent. No signal soft tissue abnormality. There are borderline enlarged bilateral cervical chain lymph nodes, nonspecific. Lung apices are grossly clear. There is a small noncalcified subpleural nodule in the posterior aspect of the left upper lobe measuring about 5 mm, nonspecific. No significant bony abnormality. IMPRESSION: 1. The left vertebral artery is not identified and may be occluded at its origin. This could be acute or chronic. Correlate clinically. If indicated, MRI could better evaluate. 2. No evidence of right vertebral artery stenosis or significant basilar artery stenosis. 3. No evidence of hemodynamically significant stenosis or aneurysm involving the anterior circulation. Justicifation of Admission Dx: Justifications for Admission: Justification of Admission Dx: Yes JANNIE WAGNER MD May 16, 2021 08:57
[2021-05-16] MEDS ORDERED: PSEUDOEPHEDRINE ER 120 MG TABLET.ER. PO SCH (09:00)
[2021-05-16] MEDS ORDERED: CETIRIZINE HCL 10 MG TABLET. PO SCH (09:00)
[2021-05-16] MEDS ORDERED: MULTIVITAMIN with MINERAL TABLET. PO SCH (09:00)
--- NOTE | 2021-05-16 10:46 | SNU/HH DC ---
DISCHARGE WITH HOME HEALTH DISCHARGE INFORMATION: Final Diagnosis: Problems Medical Problems: (1) Dysarthria Status: Acute Condition on Discharge: Stable CODE STATUS: Code Status: Full HOME HEALTH: Face to Face: I certify this patient is under my care and that I, or a nurse practitioner or physician's hygiene assistant working with me, had a face to face encounter that meets the physician face to face encounter requirements with this patient on []. Medical Complications: Other (History of strokes) [facility] For: Assess & Educate Safety RN For Eval/Treatment: Yes Physical Therapy For: Evalulation/Treatment Occupational Therapy For: Evaluation/Treatment Home Health Aide For: Self-care [employer] RESOURCE SPECIALIST For: Community Resources Pt Meets Homebound Status: Poor coordination w/ amb. POST DISCHARGE ORDERS: Activity Instructions for Disc: Activity as tolerated Weight Bearing Status after Di: Full weight bearing DIET AFTER DISCHARGE: Regular CHECKS AFTER DISCHARGE: Checks after discharge: Check blood press - daily CERTIFICATION STATEMENT: Certification Statement: Certification Statement: Based on the above finding, I certify that this patient is confined to the home and needs intermittent assisted care, physical therapy and/or speech therapy, or continues to need occupational therapy.~ This patient is under my care, and I have initiated the establishment of the plan of care.~ This patient will be followed by myself or a community physician who will periodically review the plan of care. Home Meds Active Scripts Hydrocodone Bit/Acetaminophen (HYDROCODONE-APAP 5-325 ) 1 Tab Tablet, 1 TAB PO PRN Q6HRS PRN for PAIN, #8 TAB 0 Refills Prov:JANETTE LEVINE DO 01/10/21 Reported Medications Cetirizine Hcl/Pseudoephedrine (ZYRTEC-D TABLET) 1 Each Tab.er.12h, 1 TAB PO DAILY for allergies, #30 TAB 03/30/21 Aspirin/Acetaminophen/Caffeine (EXCEDRIN MIGRAINE CAPLET) 1 Each Tablet, 1 EACH PO Q6HRS PRN for HEADACHE, TAB 03/30/21 Multivitamin (MULTIVITAMINS) 1 Each Tablet, 1 TAB PO DAILY for vitamin, #90 TAB 3 Refills 03/30/21 [epi pen] No Conflict Check, PRN for bee stings 11/16/20 Atorvastatin Calcium (LIPITOR) 80 Mg Tablet, 1 TAB PO DAILY for hs, #30 TAB 5 Refills 11/16/20 Clopidogrel Bisulfate (CLOPIDOGREL) 75 Mg Tablet, 1 TAB PO DAILY for blood thinner, #90 TAB 1 Refill 07/26/20 Aspirin (ASPIRIN EC) 81 Mg Tablet.dr, 1 TAB PO DAILY for heart, #30 TAB 3 Refills 07/26/20 Discontinued Reported Medications Fluticasone/Vilanterol (Breo Ellipta 100-25 Mcg INH) 1 Each Blst.w.dev, 1 EACH INH DAILY for RESPIRATORY 05/15/21 ALANA WILLIAM III DO May 16, 2021 10:46
--- NOTE | 2021-05-16 10:55 | NUR ---
SS following for discharge planning. SS reviewed pt chart and discussed with pt RN. Pt is from home and is currently on room air. Neurology following. PO diet. Discharge order on the chart for home with self care.
--- NOTE | 2021-05-16 12:03 | NUR ---
Discharge instructions given. No new prescriptions. Answered questions and concerns. Verbalized understanding. Pt discharged home accompanied by daughter. Escorted out by w/c.
--- NOTE | 2021-05-16 13:10 | DS ---
DATE OF DISCHARGE: 05/16/2021 ADMISSION DIAGNOSES: Possible transient ischemic attack, fall and concussion. DISCHARGE DIAGNOSES: 1. Resolving neurologic symptoms. 2. History of old brainstem stroke from her left vertebral artery dissection. 3. Recent fall, resolving concussion. CONSULTS: Neurology. PROCEDURES: None. HOSPITAL COURSE: The patient is a pleasant, middle-aged female who presented with some stroke symptoms and she had a previous stroke. She was admitted. We consulted Dr. Shabazz. He feels like she has periodic symptoms after her previous stroke, where she is a little weak and slurred speech and confused. In addition to that, she actually fell this time and had a mild concussion. We did a CAT scan, which showed the recurrence of this previous disease. Today, I saw and examined her. She is at her baseline and wants to go home. Dr. Shabazz is okay with her going home on aspirin and Plavix and a statin. DISPOSITION: Home. ACTIVITY: As tolerated. DIET: Low sodium. DISCHARGE MEDICATIONS: Please see the MRAD. TOTAL TIME: [address]: SELVIN/jennifer TID: [id number]
== END 2021-05-16 12:15 | disposition home or self-care (01) ==
LOC: ER 08:36 → 6 SOUTH 12:22
PROVIDERS: ADMIT Internal Medicine; ATTEND Internal Medicine
DX: R47.1 Dysarthria and anarthria (principal); Z20.822 Contact with and (suspected) exposure to COVID-19; R29.810 Facial weakness; I10 Essential (primary) hypertension; E78.5 Hyperlipidemia, unspecified; J45.909 Unspecified asthma, uncomplicated; G47.33 Obstructive sleep apnea (adult) (pediatric); R47.81 Slurred speech; K21.9 Gastro-esophageal reflux disease without esophagitis; M25.511 Pain in right shoulder; M25.512 Pain in left shoulder; R10.9 Unspecified abdominal pain; G43.909 Migraine, unspecified, not intractable, without status migrainosus; D72.819 Decreased white blood cell count, unspecified; G90.2 Horner's syndrome; H91.91 Unspecified hearing loss, right ear; I25.10 Atherosclerotic heart disease of native coronary artery without angina pectoris; I63.9 Cerebral infarction, unspecified; I65.02 Occlusion and stenosis of left vertebral artery; I69.320 Aphasia following cerebral infarction; I70.0 Atherosclerosis of aorta; I77.74 Dissection of vertebral artery; M47.812 Spondylosis without myelopathy or radiculopathy, cervical region; M47.814 Spondylosis without myelopathy or radiculopathy, thoracic region; M48.02 Spinal stenosis, cervical region; N20.0 Calculus of kidney; Z95.0 Presence of cardiac pacemaker; Z79.01 Long term (current) use of anticoagulants; Z85.828 Personal history of other malignant neoplasm of skin; Z87.11 Personal history of peptic ulcer disease; Z87.442 Personal history of urinary calculi; Z79.899 Other long term (current) drug therapy; Z90.49 Acquired absence of other specified parts of digestive tract; Z90.710 Acquired absence of both cervix and uterus
CPT/HCPCS: 36415; 70450; 70496; 70498; 71045; 71260; 74177; 80053; 80307; 81001; 82962; 83605; 83690; 83735; 84484; 85025; 85610; 85730; 87086; 87428; 93005; 97165; 97530; 99285; G0378; G0480; Q9967; G0379; J0690; J1100; J2370; J2405; J2704; J2710; J3010; J3490